=== PATIENT | male | born 1960 | race Caucasian/White ===

== ENCOUNTER 2025-03-11 14:23 | Inpatient (IN) | payer BC, SELFPAY ==
[2025-03-11] VITALS (8 sets, daily range): BP systolic 102–133; BP diastolic 54–79
--- NOTE | 2025-03-11 12:17 | ED.GENMED ---
History of Present Illness
General
Chief Complaint: Breathing Problem
Source: patient
Time Seen by Provider: 03/11/25 12:02
History of Present Illness
History of Present Illness:
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
experiencing worsening cough and shortness of breath over the last 9 weeks noting that during this time his cough is seem to have gotten worse, bringing up clear to greenish sputum, initially with had a little bit of a red tinge but this is since
resolved. He denies any fevers, chills, rigors, chest pain (notes that when he coughs it does cause discomfort throughout his entire chest and abdomen due to coughing so much). He denies any known sick contacts, recent travel or recent
antibiotics. He does report good compliance with all of his antirejection medications.
Past History
Past History
ED Past Medical History: HTN and Other (Status post kidney transplant.)
ED Past Surgical History: Appendectomy and Other (Renal biopsy)
Social History
Tobacco: Former smoker
Alcohol: None
Drug: None
Personal:
Living: with family
Family History
Family History: Other (Not contributory)
Review of Systems
Review of Systems
All Other Systems: ROS reviewed and negative except as documented in HPI and ROS
Phy Exam
Physical Exam
Physical Exam:
GENERAL: Alert , in no apparent distress
HEAD: NCAT
EYE: conjunctiva clear
NECK: Supple
ENT: o/p clr, mmm.
CARDIAC: Tachycardic rate and rhythm, no murmur
LUNGS: Restricted lung sounds throughout with scattered wheezing, pulse ox between 86 and 88% on room air. Placed on 2L NC with response to 92-94%. Speaking full sentences, no tachypnea
NEUROLOGICAL: Alert and oriented
SKIN: Warm and dry, skin intact.
MUSCULOSKELETAL: well perfused.
PSYCH: Normal and appropriate interaction.
Scores
Heart Failure Risk
Heart Failure Risk Score: Not Applicable
Heart Score for Chest Pain Patients
STEMI patient?: Not applicable
Withdrawal Assessment of Alcohol
Withdrawal Assessment Completed?: Not applicable
Course
Orders/Labs/Results
Orders:
Orders
03/11/25 11:54
CR Chest - 2 Views Urgent
Comment:
Reason For Exam: cough
03/11/25 12:15
Electrocardiogram (*1) Urgent
Reason for Study: Shortness of Breath
EKG- Treatment ONCE
Ipratropium/Albuterol Sulfate [Duoneb] 3 ml INH R NOW ONE
03/11/25 12:20
COVID-19 Antigen Urgent
Source: Nasal Swab
Complete Blood Count/With Diff Urgent
Comprehensive Metabolic Panel Urgent
NT-proBNP Urgent
Troponin I Urgent
Influenza A+B Rapid Molecular Urgent
JONO Source: Nasal Swab
Specimen Description:
03/11/25 13:43
Cefepime HCl [Maxipime] 2,000 mg IV NOW STA
Vancomycin [Vancocin] 2,000 mg 0.9% Sodium Chloride 500 ml [Nss] 500 ml IV NOW
03/11/25 13:51
Sterile Water [Sterile Water For Injection] 10 ml .ROUTE .[facility]
03/11/25 13:54
0.9% Sodium Chloride 1000 ml [Nss] 1,000 ml IV BOLUS
03/11/25 13:56
Vancomycin [Vancocin] 2,000 mg 0.9% Sodium Chloride 500 ml [Nss] 500 ml IV NOW
03/11/25 14:00
Blood Culture Q30M
JONO Source: Blood/Venous
Specimen Description:
Azithromycin [Zithromax] 500 mg PO DAILY@1400
03/11/25 14:07
Sputum Culture [Respiratory Culture/Gram Stain] Routine
JONO Source: Sputum
Specimen Description:
03/11/25 14:09
US Chest - Left Urgent
Comment:
Reason For Exam: parapneumonic effusion
03/11/25 14:11
Admit/Transfer Patient As Directed
Co-Sign Provider:
Level of Care: Inpatient admission
Assign to:: Telemetry
Physician / Group: Briana Randhawa
Diagnosis: sepsis secondary to pneumonia
Reason for Telemetry: Chest Pain syndromes
Date to Stop Telemetry: 03/13/25
Time to Stop Telemetry: 11:00
Reason for Hospitalization: sepsis secondary to pneumonia
Expected length of stay greater than two midnights?: Yes
ELOS- Estimated Length of Stay in days: 3
I certify the patient meets the requirements for IP care: Yes
03/11/25 14:12
PRN Pain Medication Management As Directed
May give lesser potent ordered pain med per pt: Yes
preference::
Protocol:: Medication orders for pain may be administered in a
manner that supports deferring to patient preference
when the pt is:
- Requesting an ordered lesser potent pain medication.
Least to most potent pain medications are defined
as: acetaminophen < NSAID < tramadol < opioids
(morphine, oxycodone, hydromorphone).
- Requesting a lesser dose of the same medication IF
ORDERED.
- Requesting a less intrusive route of administration
if both routes are prescribed by the provider (PO <
IV).
03/11/25 14:15
Code Status As Directed
Resuscitation Status: Full Code
03/11/25 14:17
Lactate Level [Lactic Acid] Urgent
03/11/25 14:30
Blood Culture Q30M
JONO Source: Blood/Venous
Specimen Description:
03/13/25 11:00
DC Protocol for Telemetry ONCE
Abnormal Lab Results
03/11/25
12:20
WBC 12.7 H 10^3/uL
(4.8-10.8)
Abs Immat Gran (auto) 0.1 H 10^3/uL
(0-0.05)
Absolute Neuts (auto) 11.2 H 10^3/uL
(1.4-6.5)
Absolute Lymphs (auto) 0.4 L 10^3/uL
(1.2-3.4)
Absolute Monos (auto) 1.1 H 10^3/uL
(0.1-0.6)
Neutrophils % 87.9 H %
(42.2-75.2)
Lymphocytes % 3.1 L %
(20.5-51.1)
Sodium 131 L mmol/L
(135-145)
BUN 41 H mg/dl
(9-20)
Creatinine 1.5 H mg/dL
(0.7-1.3)
Glucose 159 H mg/dl
(70-99)
03/11/25 12:20
03/11/25 12:20
Vital Signs
Initial and Last Documented VS:
Initial Vital Signs
Temp Pulse Resp BP Pulse Ox
99.2 F 116 20 108/70 92
03/11/25 11:50 03/11/25 11:50 03/11/25 11:50 03/11/25 11:50 03/11/25 11:50
Last Documented Vital Signs
Temp Pulse Resp BP Pulse Ox
99.2 F 112 21 102/65 92
03/11/25 11:50 03/11/25 12:24 03/11/25 12:24 03/11/25 12:23 03/11/25 12:28
MDM/Problems Addressed
Differential Diagnosis Includes:
COPD exacerbation, pneumonia, less concern for viral syndrome given the duration of time patient has had the symptoms, PE also considered given patient's tachycardia and hypoxia
MDM/Problems Addressed:
64-year-old male presenting to the ER for evaluation of continued cough, shortness of breath, sputum production and increased discomfort when coughing has been gradually worsening over the last 9 weeks. Patient has not attempted any other
medications, has not had any workup or imaging completed. He is without fever here however there is hypoxia and tachycardia. We did consider and discussed workup for PE however patient states he does not wish to receive any IV dye load so CTA of
the chest was deferred. Will obtain chest x-ray. Patient did have restricted lung sounds and wheezing likely signifying some degree of COPD exacerbation. Will treat with 2 L via nasal cannula as well as DuoNeb. Patient will likely require
antibiotics and admission for further testing/monitoring
Chronic conditions affecting care: COPD and Cancer
Acute Exacerbation and/or Progression of Chronic Illness: COPD
*Radiology
Radiology exam reviewed: preliminary read by ED provider (LLL pneumonia with small effusion)
*Pulse Oximetry
Patient hypoxic: yes
*Mash Grinder Interpretation
Rate: tachycardiac
Rhythm: sinus
*Critical Care Note
Total Time (30-74mins, 75-104mins- exclusive of procedures): Not Applicable
Patient Management
Discussion with other providers: Hospitalist
Escalation/DeEscalation of care consider admission/obs:
Patient has a significant left lower lobe pneumonia. Given his immunocompromise state combined with hypoxia we will plan for admission. Maxipime and vancomycin ordered for broad-spectrum coverage. Hospitalist team aware and accepts for continued
evaluation and treatment.
ED Attending Note
-
Portions of this chart may have been created with voice recognition software.� Occasional wrong word or��sound alike� substitutions may have occurred due to the inherent limitations of voice recognition software.
Discharge Plan
Departure
Patient Disposition: Admit
Date of Disposition: 03/11/25
Time of Disposition: 13:45
Presentation/result/management discussed w/ accepting MD/DO: Hospitalist
Discharge Problem:
Pneumonia, Acute exacerbation of chronic obstructive pulmonary disease, BC (acute kidney injury)
Interventions
Interventions:
*Risk Screen - Suicide Last Done: 03/11/25 12:28
*General Assessment Last Done: 03/11/25 12:28
*Neglect/Abuse Screening Last Done: 03/11/25 12:28
*ED- Fall Risk Assessment Last Done: 03/11/25 12:28
*ED COVID-19 Vaccine History Last Done: 03/11/25 12:28
ED- Cardiac Assessment Last Done: 03/11/25 12:28
ED- Pulmonary Assessment Last Done: 03/11/25 12:28
[2025-03-11] MEDS: DUONEB 3 ML INH (12:25)
[2025-03-11 12:35] LABS: % Basophils 0.2 % (0-2); % Immature Granulocytes 0.5 % (0-0.5); % Lymphocytes 3.1 % (20.5-51.1); % Monocytes 8.3 % (1.7-9.3); % Neutrophils 87.9 % (42.2-75.2); Absolute Immature Granulocytes 0.1 10^3/uL (0-0.05); Absolute Lymphocytes 0.4 10^3/uL (1.2-3.4); Absolute Monocytes 1.1 10^3/uL (0.1-0.6); Absolute Neutrophils 11.2 10^3/uL (1.4-6.5); Hematocrit 46.8 % (39.0-52.0); Mean Corp Hgb Conc. 34.2 g/dL (33.0-37.0); Mean Corpuscular Hgb 28.7 pg (27.0-31.0); Mean Platelet Volume 10.3 fL (7.4-10.4); Nucleated Red Blood Cells % 0 % (-); Platelet Count 271 10^3/uL (130-400); Red Blood Cell Count 5.57 10^6/uL (4.70-6.10); Red Cell Dist. Width 13.2 % (11.5-14.5); White Blood Cell Count 12.7 10^3/uL (4.8-10.8)
[2025-03-11 12:44] LABS: ALT (SGPT) 18 U/L (0-50); AST (SGOT) 19 U/L (17-59); Albumin 3.5 g/dl (3.5-5.0); Alkaline Phosphatase 65 U/L (38-126); Blood Urea Nitrogen 41 mg/dl (9-20); Calcium 9.1 mg/dl (8.4-10.2); Carbon Dioxide 22 mmol/L (22-30); Chloride 99 mmol/L (98-107); Glucose 159 mg/dl (70-99); Sodium 131 mmol/L (135-145); Total Bilirubin 1.3 mg/dl (0.2-1.3); Total Protein 6.3 g/dl (6.3-8.2); eGFR 51.99
[2025-03-11 12:53] LABS: COVID-19 Antigen Negative (Negative)
[2025-03-11 12:55] LABS: NT-proBNP 207 pg/ml; Troponin I < 0.012 ng/ml
--- NOTE | 2025-03-11 13:49 | HPS.HSE ---
Addendum entered and electronically signed by Briana Randhawa MD 03/11/25 19:34:
CHEST US
FINDINGS/IMPRESSION:
Limited targeted ultrasound evaluation of the left lower chest was performed.
Images show a small complex left pleural effusion measuring 5.1 x 2.7 x 4.2 cm.
Discussed with Pulmonary and IR, formal consult tomorrow. Thoracentesis orders placed, if large enough to tap.
Original Note:
Family Physician
-
Family Physician: LUIS ANGEL Sampson
Chief Complaint
-
cough and shortness of breath
History of Present Illness
Mr. Crescencio Beauchamp is a 64 yo man with hx COPD, renal transplant 2018 ([facility]), essential HTN presents to the ER with worsening cough and shortness of breath over the past 9 weeks.
Patient states past two months he has had a persistent cough. He had a telemed appointment and initially it was thought to be viral. He had worsening symptoms over past 2 1/2 weeks with more productive severe cough. No fevers/chills. At home he
noticed his oxygen level was low and so he came to the ER.
No nausea/vomiting. No diarrhea. Lives at home with who has not had similar illness. No rash. No LE swelling. Compliant with all medications.
Medical History
Past Medical History
Past Medical History: Reports Other (kidney transplant, COPD, former smoker, hypertension, PAD, diabetes)
Past Surgical History: Reports None
Social History
Tobacco: Former Smoker
Alcohol: Occasional
Drug: None
Family History
Family History: Not pertinent
Allergies / Home Medications
Allergies reflects when Allergies were last updated in [facility].
Home Medications with original date entered in [facility]
Allergy/Medication List:
Allergies
Allergy/AdvReac Type Severity Reaction Status Date / Time
anti-thymocyte globulin, Allergy Unknown Verified 07/11/23 10:35
rabbit
[From Thymoglobulin]
Home Medications
aspirin 81 mg chewable tablet ([place] Chewable Low Dose Aspirin) 81 mg PO HS Blood Clot Prevention/Tx 10/11/16
albuterol sulfate 90 mcg/actuation aerosol inhaler 2 puff inhalation R Q4HPRN PRN sob/wheezing 07/11/23
insulin glargine 100 unit/mL (3 mL) subcutaneous pen (Lantus Solostar U-100 Insulin) 15 unit SC BID Diabetes 07/11/23
mycophenolate mofetil 250 mg capsule 250 mg PO BID Transplant 07/11/23
nifedipine 60 mg tablet,extended release 24 hr 60 mg PO BID Blood Pressure 07/11/23
tacrolimus 1 mg capsule, immediate-release 2 mg PO BID Transplant 07/11/23
tamsulosin 0.4 mg capsule 0.4 mg PO HS Urinary Issue 07/11/23
atorvastatin 40 mg tablet (Lipitor) 40 mg PO HS 03/11/25
benzonatate 100 mg capsule 100 mg PO TIDPRN PRN cough 03/11/25
clopidogrel 75 mg tablet (Plavix) 75 mg PO QPM 03/11/25
lisinopril 20 mg tablet 20 mg PO QPM 03/11/25
tiotropium 2.5 mcg-olodaterol 2.5 mcg/actuation mist for inhalation (Stiolto Respimat) 2 puff inhalation R DAILY 03/11/25
Review of Systems
-
History Source: Patient
A 12 point ROS was completed and negative except as noted: Yes
Physical Exam
Vital Signs
Vital Signs
Temp Pulse Resp BP Pulse Ox
99.2 F 112 21 102/65 92
03/11/25 11:50 03/11/25 12:24 03/11/25 12:24 03/11/25 12:23 03/11/25 12:28
Physical Exam
General: No Apparent Distress
HEENT: PERRLA
Respiratory: Clear and Decreased Breath Sounds (left lower lobe ); No Wheezes
Cardiac: S1/S2 and Regular Rhythm
Musculoskeletal: No Clubbing, No Cyanosis and No Edema
Skin: Warm and Dry; No Rash
Neuro: AO x 3
Psych: Calm
Laboratory Results
-
03/11/25 12:20
03/11/25 12:20
Laboratory Results
Total Bilirubin 1.3 mg/dl (0.2-1.3) 03/11/25 12:20
AST 19 U/L (17-59) 03/11/25 12:20
ALT 18 U/L (0-50) 03/11/25 12:20
Alkaline Phosphatase 65 U/L (38-126) 03/11/25 12:20
Troponin I < 0.012 ng/ml 03/11/25 12:20
Data Reviewed
-
Diagnostic Radiology: Report Reviewed by me
Lab Data: Labs Reviewed by me
Impression/Plan
-
Mr. Crescencio Beauchamp is a 64 yo man with hx COPD, renal transplant 2018 ([facility]) on immunosuppressents, essential HTN presents to the ER with worsening cough and shortness of breath over the past 9 weeks found to have left basilar pneumonia with
small likely parapneumonic effusion.
Triage VS: T 99.2, P 116, RR 20, BP 108/70, SpO2 92%
LABS: WBC 12.7, Hg 16.0, PLT 271, Na 131, K+ 5.0, Cl 99, CO2 22, BUN 41, Cr 15, Glucose 159, liver enzymes WNL, Trop < 0.012
Covid negative
Influenza negative
EKG: sinus tach @ 108; QTc 428
MAR: Vanc/Cefepime/Duonebs
CXR:
IMPRESSION:
There is a left basilar infiltrate favored to represent pneumonia. Additionally there is a likely small left pleural effusion, likely parapneumonic effusion. Recommend follow-up to ensure resolution.
Community Acquired pneumonia
Sepsis 2/2 Above
Small left parapneumonic effusion
Hypoxic Respiratory Insufficiency
-admit to medicine
-continue Vanc/Cefepime; add Azithromycin for atypical coverage
-Mucinex, acapella
-F/U MRSA swab, Legionalla, Strep Pneumo testing
-F/U blood cultures, lactate
-F/U sputum culture
-will obtain left chest US now to evaluated effusion; patient will require repeat imaging in 48 hours to monitor
Hx Renal Transplant
-PULMONOLOGIST INTENSIVIST Cellcept, Tacrolimus
-F/U Tacrolimus level
Mild BC in setting of sepsis
-IVF as above
-F/U urine studies
-hold PULMONOLOGIST INTENSIVIST Lisinopril
-monitor renal function
-low threshold for Nephrology consult if renal function not improved tomorrow
Essential HTN
-hold PULMONOLOGIST INTENSIVIST Lisinopril
-PULMONOLOGIST INTENSIVIST Nifedipine with hold parameters
IDDM
-patient takes Lantus 15 units BID here
-ordered for 8 units BID, adjust as needed
-ISS low
-Diabetic Diet
Hx COPD
-s/p lung volume reduction surgery
-no active wheezing on exam
-continue home inhalers and standing duonebs
Peripheral Arterial Disease
s/p stents RLE 1-2 years ago
-PULMONOLOGIST INTENSIVIST aspirin/Plavix
HLD - PULMONOLOGIST INTENSIVIST Statin
DVT PPx SCD
FULL CODE
76 minutes spent on patient care
[2025-03-11] MEDS: MAXIPIME 2000 MG IV (13:53)
[2025-03-11] MEDS: NSS 1000 IV ×2 (14:15→16:29)
[2025-03-11] MEDS: VANCOCIN 540 MG IV (14:16)
[2025-03-11 14:38] LABS: Lactic Acid 0.9 mmol/L (0.7-2.0)
--- NOTE | 2025-03-11 15:22 | PHA.VAN.IN ---
Assessment
- Assessment
Renal Function: Unknown baseline
Concomitant Antimicrobials: cefepime, azithromycin
Plan
- Plan
Initial / Loading Dose: 2000mg - 03/11 14:16
Maintenance Regimen: dosing by level
Monitoring: random 03/12 0600
MRSA Screen: Ordered per protocol
Pharmacokinetics Vancomycin I
- -
Patient Age: 64
Patient Sex: Male
Vancomycin Day #: 1
Indication: Pulmonary/Respiratory
Requesting Provider: Dr. Randhawa
Pertinent Antimicrobial Allergies:
no pertinent antibiotic allergies
Height / Weight:
Actual Weight 77 kg
Pertinent Past Medical History: Renal Transplant (2018), DM, PAD
- Vital Signs / Lab Results
Temp Pulse Resp BP Pulse Ox
100.6 F H 113 16 133/79 90
03/11/25 15:19 03/11/25 15:19 03/11/25 15:19 03/11/25 15:19 03/11/25 15:19
Lab Results - Hematology
03/11/25
12:20
WBC 12.7 H
Lab Results - Chemistry
03/11/25
12:20
BUN 41 H
Creatinine 1.5 H
Albumin 3.5
03/11/25
14:17
Lactic Acid 0.9
Microbiology Results
03/11/25 12:20 Influenza Types A & B (YOEL) - Final
Nasal Swab Negative for Influenza A & B, NAAT
Negative results must be combined with clinical observations
and patient history.
Nucleic Acid Amplification test (NAAT)performed on the
[employer] platform.
[2025-03-11 15:32] LABS: Glucose - Point of Care 135 mg/dl (70-99)
[2025-03-11] MEDS: TYLENOL 650 MG PO ×2 (15:43→20:41)
[2025-03-11] MEDS: ZITHROMAX 500 MG PO (15:43)
[2025-03-11] MEDS: TESSALON PERLES 100 MG PO (15:48)
--- NOTE | 2025-03-11 16:22 | PTCARENOTE ---
Pt arrived to the unit around 1545 from ED. He ambulated from stretcher to bed. On 2L NC. Patient oriented to room and staff. All needs met at this time. Plan of care ongoing.
[2025-03-11 16:34] LABS: Glucose - Point of Care 144 mg/dl (70-99)
[2025-03-11] MEDS: NOVOLOG FLEXPEN-LOW RESISTANCE SC (16:43)
[2025-03-11] MEDS: VENTOLIN NEBULES INH (16:49)
[2025-03-11] MEDS: PLAVIX 75 MG PO (18:02)
[2025-03-11 18:34] LABS: Urine Sodium 17 mmol/L (30-90)
[2025-03-11] MEDS: VENTOLIN NEBULES 2.5 MG INH (19:51)
[2025-03-11 20:22] LABS: Glucose - Point of Care 243 mg/dl (70-99)
[2025-03-11] MEDS: LANTUS 0.08 UNITS SC (20:32)
[2025-03-11] MEDS: MUCINEX 600 MG PO (20:39)
[2025-03-11] MEDS: PROCARDIA XL (EXTENDED RELEASE) PO (20:39)
[2025-03-11] MEDS: PROGRAF 2 MG PO (20:40)
[2025-03-11] MEDS: FLOMAX 0.4 MG PO (22:29)
[2025-03-11] MEDS: CELLCEPT 250 MG PO (22:29)
[2025-03-11] MEDS: LIPITOR 40 MG PO (22:29)
[2025-03-11] MEDS: LOW STRENGTH ASPIRIN 81 MG PO (22:30)
[2025-03-12] VITALS (7 sets, daily range): BP systolic 99–145; BP diastolic 53–78
[2025-03-12] MEDS: MAXIPIME 2000 MG IV ×2 (03:13→13:08)
[2025-03-12] MEDS: STERILE WATER FOR INJECTION 10 ML IV ×2 (03:14→13:08)
[2025-03-12 06:15] LABS: Glucose - Point of Care 138 mg/dl (70-99)
[2025-03-12] MEDS: LANTUS 0.08 UNITS SC ×2 (06:15→20:29)
[2025-03-12 06:44] LABS: % Basophils 0.3 % (0-2); % Eosinophils 1.4 % (0-6); % Immature Granulocytes 0.6 % (0-0.5); % Monocytes 11.9 % (1.7-9.3); % Neutrophils 79.8 % (42.2-75.2); Absolute Eosinophils 0.1 10^3/uL (0-0.7); Absolute Immature Granulocytes 0.1 10^3/uL (0-0.05); Absolute Lymphocytes 0.5 10^3/uL (1.2-3.4); Absolute Neutrophils 6.9 10^3/uL (1.4-6.5); Hematocrit 45.2 % (39.0-52.0); Hemoglobin 15.2 g/dL (13.0-18.0); Mean Corp Hgb Conc. 33.6 g/dL (33.0-37.0); Mean Corpuscular Hgb 28.6 pg (27.0-31.0); Mean Platelet Volume 10.4 fL (7.4-10.4); Nucleated Red Blood Cells % 0 % (-); Platelet Count 259 10^3/uL (130-400); Red Blood Cell Count 5.32 10^6/uL (4.70-6.10); Red Cell Dist. Width 13.3 % (11.5-14.5); White Blood Cell Count 8.7 10^3/uL (4.8-10.8)
[2025-03-12 07:21] LABS: Blood Urea Nitrogen 36 mg/dl (9-20); Calcium 8.9 mg/dl (8.4-10.2); Carbon Dioxide 23 mmol/L (22-30); Chloride 107 mmol/L (98-107); Estimated Creatinine Clearance 52 ml/min; Glucose 158 mg/dl (70-99); LDH 205 U/L (120-246); Potassium 4.7 mmol/L (3.5-5.1); Sodium 138 mmol/L (135-145); Total Protein 5.5 g/dl (6.3-8.2); eGFR > 60.00
[2025-03-12] MEDS: SPIRIVA RESPIMAT 2.5 MCG 2 PUFF INH (07:51)
[2025-03-12] MEDS: STRIVERDI RESPIMAT 2 PUFF INH (07:51)
[2025-03-12 08:07] LABS: Glucose - Point of Care 108 mg/dl (70-99)
[2025-03-12] MEDS: NOVOLOG FLEXPEN-LOW RESISTANCE SC (08:07)
[2025-03-12] MEDS: CELLCEPT 250 MG PO ×2 (08:08→20:25)
[2025-03-12] MEDS: MUCINEX 600 MG PO (08:08)
[2025-03-12] MEDS: PROGRAF 2 MG PO ×2 (08:08→20:27)
[2025-03-12] MEDS: PROCARDIA XL (EXTENDED RELEASE) 60 MG PO ×2 (08:08→20:26)
--- NOTE | 2025-03-12 08:24 | PHA.VAN.FU ---
Vancomycin Assessment / Plan
- Assessment
Renal Function: SCR Decreasing
WBC's are: Trending Down
In the past 24 hrs, patient has been: Afebrile
Concomitant Antimicrobials: cefepime, azithromycin
- Dosing Plan
Dosing by Level: Re-dose today (Vanc 1250mg x1)
No level for today but based on SCR trend, appropriate to re-dose today
- Monitoring Plan
Random Level: 03/13 0600
- Follow Up
Pharmacy will continue to follow.
Vancomycin Follow UP
- -
Patient Age: 64
Patient Sex: Male
Vancomycin Day #: 2
Indication: Pulmonary/Respiratory
Requesting Provider: Dr. Randhawa
Pertinent Antimicrobial Allergies:
no pertinent antibiotic allergies
Height / Weight:
Height 5 ft 6 in
Actual Weight 77 kg
Pertinent Past Medical History: Renal Transplant (2018), DM, PAD
- Vital Signs / Lab Results
Temp Pulse Resp BP Pulse Ox
98.5 F 100 16 145/73 91
03/12/25 07:19 03/12/25 08:08 03/12/25 07:55 03/12/25 08:08 03/12/25 07:55
Lab Results - Hematology
03/11/25 03/12/25
12:20 06:02
WBC 12.7 H 8.7
Lab Results - Chemistry
03/11/25 03/12/25
12:20 06:02
BUN 41 H 36 H
Creatinine 1.5 H 1.3
Estimated Creat Clear 52
Albumin 3.5
03/11/25
14:17
Lactic Acid 0.9
Microbiology Results
03/11/25 18:07 Legionella Urinary Antigen - Final
Urine Negative for Legionella pneumophila Serogroup 1 antigen.
A negative result does not rule out the possiblity of
Legionella infection due to other serogroups or species of
Legionella. Clinical correlation is recommended.
Streptococcus pneumoniae Antigen (M - Final
Negative for Streptococcus pneumoniae antigen.
A negative result does not exclude infection with
Streptococcus pneumoniae. Clinical correlation is
recommended.
03/11/25 16:38 Nasal Screen MRSA (PCR) - Final
Nose MRSA not detected - performed by PCR methodology.
03/11/25 14:48 Gram Stain - Preliminary
Sputum
03/11/25 12:20 Influenza Types A & B (YOEL) - Final
Nasal Swab Negative for Influenza A & B, NAAT
Negative results must be combined with clinical observations
and patient history.
Nucleic Acid Amplification test (NAAT)performed on the
[employer] platform.
--- NOTE | 2025-03-12 08:50 | CON.PUL ---
Consultation
Consultation Request
Date/Time Consultation Requested: 03/11/20251926
Date/Time Consultation Performed: 03/12/2025843
Requesting Provider: Dr. Randhawa
Performing Provider: Dr. Mcmahan
Reason for Consultation: PNA/COPD
Medical History
-
Chief Complaint: Persistent cough with SOB
History of Present Illness:
64-year-old male former tobacco smoker with a past medical history of COPD, kidney transplant, chronic immunosuppressive use, hypertension, PAD, and DM type II who presents with cough + SOB. He said he has had a cough for about 11 weeks and it
worsened over the last 3 weeks. He follows with pulmonology at [place], Dr. Hart, and he was told that he has a viral illness. He does not normally have a cough. Also denied any fevers prior to arrival. He is not on home oxygen. Also denies
nausea/vomiting/diarrhea/abdominal pain. He is on Stiolto for COPD. In the ER he was afebrile to 99.2 �F, pulse rate 116, respiratory rate 20, BP 108/70 and saturating 92% on room air. Labs showed leukocytosis to 12.7, sodium 131, creatinine 1.5,
proBNP 207, troponin negative at <0.012, and COVID-19 antigen negative. Flu swab is negative, blood cultures were collected and CXR showed a left basilar infiltrate likely due to pneumonia. He was given 1 L NS 0.9% in the ER, DuoNebs +
cefepime/vancomycin, and admitted to telemetry under the hospitalist. Pulmonary service is now consulted for additional management/recommendations.
When I saw the patient today, he was resting in bed on 3 L/min nasal cannula, saying he still has a cough with yellow mucus, although he is breathing well. His cough sounds wet but he is not bringing up a large amount of phlegm. He currently
denies chest pain, RAMOS, nausea, chills. He was febrile yesterday to 100.6 �F.
PMHx: COPD/emphysema, former tobacco smoker, kidney transplant, hypertension, PAD, diabetes mellitus type 2
PSHx: Kidney transplant, appendectomy, LUE AV fistula
Past Medical History
Past Medical History: Other (Above as per HPI)
Past Surgical History: Other (Above as per HPI)
Social History
Tobacco: Former Smoker
Alcohol: Occasional
Drug: None
Employment: Employed (Machine shop)
Family History
Family History: Reviewed & Not Pertinent
Allergies / Home Medications
Allergies
Allergy/AdvReac Type Severity Reaction Status Date / Time
anti-thymocyte globulin, Allergy Unknown Verified 07/11/23 10:35
rabbit
[From Thymoglobulin]
Home Medications
�Medication �Instructions �Recorded �Confirmed �Last Taken �Type
aspirin 81 mg chewable tablet 81 mg PO HS Blood Clot 10/11/16 03/11/25 03/10/25 History
([place] Chewable Low Dose Aspirin) Prevention/Tx
albuterol sulfate 90 mcg/actuation 2 puff inhalation R Q4HPRN PRN 07/11/23 03/11/25 Unknown History
aerosol inhaler sob/wheezing
insulin glargine 100 unit/mL (3 15 unit SC BID Diabetes 07/11/23 03/11/25 03/11/25 History
mL) subcutaneous pen (Lantus
Solostar U-100 Insulin)
mycophenolate mofetil 250 mg 250 mg PO BID Transplant 07/11/23 03/11/25 03/11/25 History
capsule
nifedipine 60 mg tablet,extended 60 mg PO BID Blood Pressure 07/11/23 03/11/25 03/11/25 History
release 24 hr
tacrolimus 1 mg capsule, 2 mg PO BID Transplant 07/11/23 03/11/25 03/11/25 History
immediate-release
tamsulosin 0.4 mg capsule 0.4 mg PO HS Urinary Issue 07/11/23 03/11/25 03/10/25 History
atorvastatin 40 mg tablet (Lipitor) 40 mg PO HS 03/11/25 03/11/25 03/09/25 History
benzonatate 100 mg capsule 100 mg PO TIDPRN PRN cough 03/11/25 03/11/25 Unknown History
clopidogrel 75 mg tablet (Plavix) 75 mg PO QPM 03/11/25 03/11/25 03/10/25 History
lisinopril 20 mg tablet 20 mg PO QPM 03/11/25 03/11/25 03/10/25 History
tiotropium 2.5 mcg-olodaterol 2.5 2 puff inhalation R DAILY 03/11/25 03/11/25 03/11/25 History
mcg/actuation mist for inhalation
(Stiolto Respimat)
Review of Systems
-
History Source: Patient
All other systems: Negative unless noted
Vitals / Labs / Diagnostic Testing
Vital Signs
Temp Pulse Resp BP Pulse Ox
98.5 F 100 16 145/73 91
03/12/25 07:19 03/12/25 08:08 03/12/25 07:55 03/12/25 08:08 03/12/25 07:55
Lab Data
03/12/25 06:02
03/12/25 06:02
Microbiology
03/11/25 18:07 Urine Legionella Urinary Antigen - Final
Negative for Legionella pneumophila Serogroup 1 antigen.
A negative result does not rule out the possiblity of
Legionella infection due to other serogroups or species of
Legionella. Clinical correlation is recommended.
03/11/25 18:07 Urine Streptococcus pneumoniae Antigen (M - Final
Negative for Streptococcus pneumoniae antigen.
A negative result does not exclude infection with
Streptococcus pneumoniae. Clinical correlation is
recommended.
03/11/25 16:38 Nose Nasal Screen MRSA (PCR) - Final
MRSA not detected - performed by PCR methodology.
03/11/25 14:48 Sputum Gram Stain - Preliminary
03/11/25 12:20 Nasal Swab Influenza Types A & B ([facility]) - Final
Negative for Influenza A & B, NAAT
Negative results must be combined with clinical observations
and patient history.
Nucleic Acid Amplification test (NAAT)performed on the
[employer] platform.
Diagnostic Testing:
Physical Exam
-
HEENT: Normocephalic and Anicteric
Cardiovascular: S1/S2 and Peripheral Edema (negative)
Respiratory: Wheeze (negative), Rales (Left base), Rhonchi (negative) and Non-Labored Respirations
GI: Soft, Non Distended, Non Tender and Normal Bowel Sounds
Neurology: AO x 3 and Tremors (negative)
Skin: Warm and Dry
General: Respiratory Distress (negative), Comfortable, Fever (negative) and Chills (negative)
Assessment
-
Assessment: 64-year-old male former tobacco smoker with a past medical history of COPD, kidney transplant, chronic immunosuppressive use, hypertension, PAD, and DM type II who presents with cough + SOB. He said he has had a cough for about 11
weeks and it worsened over the last 3 weeks. He follows with pulmonology at [place], Dr. Hart, and he was told that he has a viral illness. He does not normally have a cough. Also denied any fevers prior to arrival. He is not on home oxygen.
Also denies nausea/vomiting/diarrhea/abdominal pain. He is on Stiolto for COPD. In the ER he was afebrile to 99.2 �F, pulse rate 116, respiratory rate 20, BP 108/70 and saturating 92% on room air. Labs showed leukocytosis to 12.7, sodium 131,
creatinine 1.5, proBNP 207, troponin negative at <0.012, and COVID-19 antigen negative. Flu swab is negative, blood cultures were collected and CXR showed a left basilar infiltrate likely due to pneumonia. He was given 1 L NS 0.9% in the ER,
DuoNebs + cefepime/vancomycin, and admitted to telemetry under the hospitalist. Pulmonary service is now consulted for additional management/recommendations.
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
Impression:
#CAP involving left lower lobe likely due to Streptococcus pneumonia (sputum culture positive)
#Acute COPD exacerbation due to above
#Acute respiratory failure with hypoxia due to above
#Left-sided complex parapneumonic effusion
#Chronic cough
#Renal transplant (2018 � [facility]) on chronic immunosuppressives
#DM type II complicated by hyperglycemia
#Former tobacco smoker
Plan:
- Patient's had a cough for about 2.5 months, however it has been worsening over the last several weeks. CXR on admission here shows a left basilar infiltrate/opacity and sputum culture is positive for Streptococcus pneumoniae
- Prior CXR from 07/11/2023 showed LLL pleural tenting, although prior CT chest from January 30 showed normal bases
- He has centrilobular emphysema/COPD and is on stiolto at home --> continue Striverdi + Spiriva while hospitalized along with nebulized albuterol QID
- If he is too SOB to take the SMI then would change everything to nebulized form
- prn nebulized albuterol - not currently bronchospastic
- Maintain SpO2 88-95% with supplemental O2 and wean down as tolerated
- Encourage pt to get up OOB as tolerated
- Incentive spirometer encouraged q1hr while awake
- Mucolytics - raise mucinex to 1200mg q12hr
- prn anti-tussants
- Start prednisone with 40mg 5 days (he says he takes prednisone at home, 1.5mg daily for his kidney transplant)
- Continue with broad spectrum ABx - currently on cefepime, IV vancomycin and azithromycin
- Legionella + strep pneumonia urine antigens negative, although respiratory culture positive for Streptococcus pneumoniae; follow-up blood cultures ( � shows NGTD); MRSA swab negative, can DC IV vancomycin
- Trend WBC and monitor for fevers
- Continue IVF with NS @ 80cc/hr
- Given he is immunosuppressed, would plan for 7-10 days total of Abx assuming he continues to clinically improve and remains afebrile for 48 hours prior to stopping antibiotics
- Chest ultrasound from 03/11/2025 showed a small complex left-sided pleural effusion measuring 5.1 x 2.7 x 4.2 cm. Effusion is too small to be tapped. If he starts to develop recurrent fevers then would re-check chest ultrasound to see if it is
enlarging, and would favor at least diagnostic thoracentesis in that scenario
- Continue immunosuppressive's with mycophenolate + tacrolimus
- Check tacrolimus level tomorrow a.m. (to be checked immediately prior to AM dose)
- Keep MAP>65
- Replete electrolytes with K>4, Mg>2
- Trend H/H and transfuse if needed to keep Hb>7g/dL; keep plt>20k, unless there is concern for bleeding then keep plt>50k
- Maintain euglycemia, especially while on steroids, with goal BG >100 and <180
- DVT ppx: start LMWH
Pulmonary service will continue to follow along. He will follow-up with his pulmonary doctor, Dr. Hart, following discharge. If he wishes to follow with a public works inspector closer then he is welcome to see us at the [facility] office.
Data:
CXR 03/11/2025: There is a left basilar infiltrate favored to represent pneumonia. Additionally there is a likely small left pleural effusion, likely parapneumonic effusion. Recommend follow-up to ensure resolution.
Total time spent today was 58 minutes for this encounter. Time includes reviewing laboratory test/imaging results, reviewing pertinent medical records, obtaining and reviewing medical history, performing an appropriate exam, ordering medications,
tests and procedures. Time also includes documentation of this encounter, coordinating patient care and communicating with other healthcare professionals. Total time does not include separately billed tests performed on this date of service.
[2025-03-12 08:54] LABS: Glycohemoglobin (HgbA1c) 6.7 % (4.0-5.6)
[2025-03-12] MEDS: TESSALON PERLES 100 MG PO (08:59)
[2025-03-12] MEDS: NSS 1000 IV ×2 (09:36→23:51)
[2025-03-12] MEDS: VENTOLIN NEBULES INH (11:30)
[2025-03-12] MEDS: VENTOLIN NEBULES 2.5 MG INH ×3 (11:32→19:54)
--- NOTE | 2025-03-12 12:10 | W.PN.HOSP.TC ---
Today's Communication/Plan
-
Pulm and ID consults
continue current abx
follow CBC, BMP
Assessment / Plan
Assessment / Plan
Community Acquired pneumonia
Sepsis 2/2 Above
Small left parapneumonic effusion
Hypoxic Respiratory Insufficiency
-admit to medicine
-continue Vanc/Cefepime; add Azithromycin for atypical coverage
-Mucinex, acapella
-F/U MRSA swab, Legionalla, Strep Pneumo testing
-F/U blood cultures, lactate
-F/U sputum culture
-left chest US evaluated effusion; patient will require repeat imaging in 48 hours to monitor. Contacted by radiology that effusion was too small to drain and they requested to cancel order- done
Hx Renal Transplant
-ORE TESTER Cellcept, Tacrolimus
-F/U Tacrolimus level
Mild BC in setting of sepsis
-IVF as above
-F/U urine studies
-hold ORE TESTER Lisinopril
-monitor renal function. Creat 1.5-->1.3
-low threshold for Nephrology consult if renal function not improved tomorrow. Discussed with Dr. Lee, he is aware pt admitted and will be available if needed
Essential HTN
-hold ORE TESTER Lisinopril
-ORE TESTER Nifedipine with hold parameters
IDDM
-patient takes Lantus 15 units BID here
-ordered for 8 units BID, adjust as needed
-ISS low
-Diabetic Diet
glu 108-243
Hx COPD
-s/p lung volume reduction surgery
-no active wheezing on exam
-continue home inhalers and standing duonebs
Peripheral Arterial Disease
s/p stents RLE 1-2 years ago
-ORE TESTER aspirin/Plavix
HLD - ORE TESTER Statin
Consult Pulm and ID
DVT PPx SCD
FULL CODE
Anticipated Discharge: > 48 hours
Subjective/Interval History
-
Date of Service: March 12, 2025
Still with cough
Objective Data
-
Labs:
Laboratory Results
03/12/25
06:02
WBC 8.7
Hgb 15.2
Hct 45.2
Plt Count 259
Sodium 138
Potassium 4.7
Chloride 107
Carbon Dioxide 23
BUN 36 H
Creatinine 1.3
Glucose 158 H
Calcium 8.9
Vital Signs:
Vital Signs
Temp Pulse Resp BP Pulse Ox
99.0 F 90 15 99/53 97
03/12/25 10:56 03/12/25 11:35 03/12/25 11:35 03/12/25 10:56 03/12/25 11:35
I&O
03/11/25 03/12/25 03/13/25
06:59 06:59 06:59
Intake Total 480 / 480
Output Total 1125 / 1125
Balance -645 / -645
Review of Systems
-
History Source: Patient and Coordinated Provider
Constitutional: Reports Fever (100.6 on 03/11 @15:19)
Respiratory: Reports Cough
Cardiac: Reports No Symptoms; Denies Chest Pain
Genitourinary: Reports No Symptoms
Musculoskeletal: Reports No Symptoms
Neuro: Reports No Symptoms
Physical Exam
-
General: Well Developed, Well Nourished and No Apparent Distress
HEENT: Normocephalic, Atraumatic and Moist Mucous Membranes
Respiratory: Rhonchi (rhonchus cough)
Cardiac: Regular Rhythm and S1/S2
GI: Soft, Nontender and Nondistended
Musculoskeletal: No Clubbing, No Cyanosis and No Edema
Skin: Warm and Dry
Neuro: Awake, Alert and Oriented
[2025-03-12 12:54] LABS: Glucose - Point of Care 286 mg/dl (70-99)
[2025-03-12] MEDS: ZITHROMAX 500 MG PO (13:04)
[2025-03-12] MEDS: VANCOCIN 275 MG IV (14:15)
[2025-03-12] MEDS: NOVOLOG FLEXPEN-LOW RESISTANCE 3 UNITS SC ×2 (14:15→18:24)
--- NOTE | 2025-03-12 15:41 | CM ---
CM met with Crescencio to complete IA; admitted with pleural effusion.
Crescencio lives with his , Yajaira, in a [facility] home with 4 entry steps. Bedroom upstairs, bathroom available on both floors.
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
Plan: Discharge to home; CM to follow to coordinate all discharge planning needs.
PCP: Dr. Oneil
Pharm: [facility] in [place]
[2025-03-12 16:47] LABS: Glucose - Point of Care 256 mg/dl (70-99)
--- NOTE | 2025-03-12 17:36 | CON.ID ---
Consultation
-
Date/Time Consultation Requested: 03/12/2025 1221
Date/Time Consultation Performed: 03/12/2025 1702
Requesting Provider: Dr. Matias
Performing Provider: Dr. Tamayo
Reason for Consultation: Pneumonia; immunocompromised
Chief Complaint / Past History
History of Present Illness
Crescencio Beauchamp is a 64-year-old man with a significant past medical history of renal transplant (2018) being evaluated at the request of Dr. Matias regarding pneumonia. History is obtained from chart review, along with patient interview.
The patient reports he was in his usual state of health until approximately 9 weeks ago when he began to have a cough. At that time, he thought it was a simple upper respiratory tract infection. In late January he called his transplant doctor
regarding symptomatology and they thought it may be viral related. When symptoms did not improve, he reached out to his doctors and he had a telemedicine visit and was prescribed Tessalon Perles, but with little effect. Over the past 2 weeks he
has noted his cough to be worse, and he he developed shortness of breath and finally presented to the emergency room for further evaluation.
Here, he was found to have a leukocytosis. Sputum culture is now revealing the presence of strep pneumoniae, and Infectious Diseases is asked to comment on further antimicrobial therapy.
At present, he notes ongoing sputum production which is white to green. He notes rib pain secondary to his coughing. He denies any fevers or chills. He does admit to shortness of breath. He denies any discomfort over his transplant.
Past History
Additional Past Medical History:
COPD
Hx renal failure
HTN
Additional Past Surgical History:
Renal transplant (2018; [facility])
Appendectomy
Lung reduction
Allergy History:
anti-thymocyte globulin, rabbit [From Thymoglobulin] Allergy (Verified 07/11/23 10:35)
Unknown
Medications Reviewed: Yes
Current Antibiotics:
Cefepime
Azithromycin
Social History
Tobacco: Former Smoker
Alcohol: None
Drug: None
Personal:
Living: With Family
Employment: Employed
Family History
Family History: Not Pertinent
Review of Systems
Vital Signs
Temp Pulse Resp BP Pulse Ox
99.0 F 98 17 108/78 97
03/12/25 15:27 03/12/25 15:27 03/12/25 15:27 03/12/25 15:27 03/12/25 15:27
Physical Exam
Physical Exam
Constitutional: No Acute Distress, Comfortable and Non-toxic
Head: Normocephalic
Eyes: Pupils Equal, Pupils Round, No Conjunctival Hemorrhage and Sclera Anicteric
Oral: No Thrush and No Ulcers
Cardiovascular: Regular Rate and S1/S2; Negative S3/S4
Pulmonary: Other (decreased BS's throughout); Negative Wheezes, Rales or Rhonchi
Gastrointestinal: Soft, Non Tender, Non Distended, Normal Bowel Sounds, No Rebound and No Guarding
Genito-Urinary: Other (No tenderness over transplant.)
Extremities: Negative Edema, Cyanosis or Erythema
Skin: Warm and Dry; Negative Rash or Jaundice
Neurological: Awake, Alert and Oriented
Psychological: Calm
.
Lab / Diagnostic Study Results
03/12/25 06:02
03/12/25 06:02
Abs Immat Gran (auto) 0.1 10^3/uL (0-0.05) H 03/12/25 06:02
Absolute Neuts (auto) 6.9 10^3/uL (1.4-6.5) H 03/12/25 06:02
Absolute Lymphs (auto) 0.5 10^3/uL (1.2-3.4) L 03/12/25 06:02
Absolute Monos (auto) 1.0 10^3/uL (0.1-0.6) H 03/12/25 06:02
Absolute Basos (auto) 0.0 10^3/uL (0-0.2) 03/12/25 06:02
Immature Gran % 0.6 % (0-0.5) H 03/12/25 06:02
Neutrophils % 79.8 % (42.2-75.2) H 03/12/25 06:02
Lymphocytes % 6.0 % (20.5-51.1) L 03/12/25 06:02
Monocytes % 11.9 % (1.7-9.3) H 03/12/25 06:02
Eosinophils % 1.4 % (0-6) 03/12/25 06:02
Basophils % 0.3 % (0-2) 03/12/25 06:02
Lactic Acid 0.9 mmol/L (0.7-2.0) 03/11/25 14:17
Microbiology Results
Micro:
03/11/25 14:17 Blood Culture - Preliminary
Blood/Venous No Growth in 24 hours- Final report to follow
03/11/25 14:17 Blood Culture - Preliminary
Blood/Venous No Growth in 24 hours- Final report to follow
03/11/25 14:48 Respiratory Culture - Preliminary
Sputum Streptococcus pneumoniae
Gram Stain - Preliminary
03/11/25 18:07 Legionella Urinary Antigen - Final
Urine Negative for Legionella pneumophila Serogroup 1 antigen.
A negative result does not rule out the possiblity of
Legionella infection due to other serogroups or species of
Legionella. Clinical correlation is recommended.
Streptococcus pneumoniae Antigen (M - Final
Negative for Streptococcus pneumoniae antigen.
A negative result does not exclude infection with
Streptococcus pneumoniae. Clinical correlation is
recommended.
03/11/25 16:38 Nasal Screen MRSA (PCR) - Final
Nose MRSA not detected - performed by PCR methodology.
03/11/25 12:20 Influenza Types A & B ([facility]OEL) - Final
Nasal Swab Negative for Influenza A & B, NAAT
Negative results must be combined with clinical observations
and patient history.
Nucleic Acid Amplification test (NAAT)performed on the
[employer] NOW platform.
Imaging:
03/11/2025 CXR (2 view): Left basilar infiltrate noted. Suspected small left effusion. No pneumothorax. Please see full dictation for additional detail.
Assessment / Plan
LLL PNA 2* Strep. pneumoniae
Leukocytosis
Cough
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
COPD
Hx renal failure
HTN
Recommendations:
Transition cefepime to ceftriaxone 2 g IV every 24 hours.
Continue with Azithromycin for the present (for anti-inflammatory properties given recovery of strep pneumo)
Monitor white count and temperature curve.
Monitor sputum production.
Await final susceptibility data.
Continue with supportive measures.
Further recommendations as additional data is returned.
[2025-03-12] MEDS: NSS IV (18:20)
[2025-03-12] MEDS: DELTASONE 40 MG PO (18:22)
[2025-03-12] MEDS: PLAVIX 75 MG PO (18:24)
[2025-03-12] MEDS: LOVENOX 40 MG SC (18:25)
[2025-03-12] MEDS: ROCEPHIN 2000 MG IV (18:26)
[2025-03-12] MEDS: STERILE WATER FOR INJECTION 20 ML IV (18:26)
[2025-03-12 20:19] LABS: Glucose - Point of Care 106 mg/dl (70-99)
[2025-03-12] MEDS: MUCINEX 1200 MG PO (20:25)
[2025-03-12] MEDS: FLOMAX 0.4 MG PO (22:02)
[2025-03-12] MEDS: LIPITOR 40 MG PO (22:03)
[2025-03-12] MEDS: LOW STRENGTH ASPIRIN 81 MG PO (22:03)
[2025-03-13 03:00] VITALS: BP 108/61
[2025-03-13 06:00] VITALS: BMI 27.7
[2025-03-13 06:04] LABS: Glucose - Point of Care 218 mg/dl (70-99)
[2025-03-13] MEDS: LANTUS 0.08 UNITS SC ×2 (06:15→20:25)
[2025-03-13] MEDS: STRIVERDI RESPIMAT 2 PUFF INH (07:36)
[2025-03-13] MEDS: SPIRIVA RESPIMAT 2.5 MCG 2 PUFF INH (07:36)
[2025-03-13] MEDS: VENTOLIN NEBULES 2.5 MG INH ×4 (07:37→19:44)
[2025-03-13 08:00] VITALS: BP 117/69
[2025-03-13 08:18] LABS: % Basophils 0.2 % (0-2); % Immature Granulocytes 0.8 % (0-0.5); % Lymphocytes 3.2 % (20.5-51.1); % Monocytes 3.2 % (1.7-9.3); % Neutrophils 92.6 % (42.2-75.2); Absolute Immature Granulocytes 0.1 10^3/uL (0-0.05); Absolute Lymphocytes 0.3 10^3/uL (1.2-3.4); Absolute Monocytes 0.3 10^3/uL (0.1-0.6); Absolute Neutrophils 9.7 10^3/uL (1.4-6.5); Hematocrit 45.5 % (39.0-52.0); Hemoglobin 15.3 g/dL (13.0-18.0); Mean Corp Hgb Conc. 33.6 g/dL (33.0-37.0); Mean Corpuscular Hgb 28.3 pg (27.0-31.0); Mean Corpuscular Volume 84.3 fL (80.0-94.0); Mean Platelet Volume 10.1 fL (7.4-10.4); Nucleated Red Blood Cells % 0 % (-); Platelet Count 313 10^3/uL (130-400); Red Cell Dist. Width 13.4 % (11.5-14.5); White Blood Cell Count 10.4 10^3/uL (4.8-10.8)
[2025-03-13] MEDS: NOVOLOG FLEXPEN-LOW RESISTANCE 2 UNITS SC (08:28)
[2025-03-13] MEDS: PROCARDIA XL (EXTENDED RELEASE) PO (08:30)
[2025-03-13] MEDS: PROGRAF 2 MG PO ×2 (08:31→20:24)
[2025-03-13] MEDS: CELLCEPT 250 MG PO ×2 (08:31→20:25)
[2025-03-13] MEDS: DELTASONE 40 MG PO (08:31)
[2025-03-13] MEDS: MUCINEX 1200 MG PO ×2 (08:31→20:25)
--- NOTE | 2025-03-13 08:50 | W.PN.PUL3 ---
Today's Communication / Plan
-
Continue antibiotics as per ID
History of 30+ Spiriva with nebulized albuterol QID
Mucolytic's
Up OOB as tolerated
Supplemental O2 to maintain SpO2 88-95%, weaning down O2 as tolerated
Ambulatory pulse oximetry prior to discharge
He usually follows with pulmonology at [facility] (Dr. Hart), but he is interested in following closer. Although information will be left in his chart for him to see us in the office
Pulmonary service will continue to follow along
Assessment
-
Assessment: 64-year-old male former tobacco smoker with a past medical history of COPD, kidney transplant, chronic immunosuppressive use, hypertension, PAD, and DM type II who presents with cough + SOB. He said he has had a cough for about 11
weeks and it worsened over the last 3 weeks. He follows with pulmonology at [facility], Dr. Hart, and he was told that he has a viral illness. He does not normally have a cough. Also denied any fevers prior to arrival. He is not on home oxygen.
Also denies nausea/vomiting/diarrhea/abdominal pain. He is on Stiolto for COPD. In the ER he was afebrile to 99.2 �F, pulse rate 116, respiratory rate 20, BP 108/70 and saturating 92% on room air. Labs showed leukocytosis to 12.7, sodium 131,
creatinine 1.5, proBNP 207, troponin negative at <0.012, and COVID-19 antigen negative. Flu swab is negative, blood cultures were collected and CXR showed a left basilar infiltrate likely due to pneumonia. He was given 1 L NS 0.9% in the ER,
DuoNebs + cefepime/vancomycin, and admitted to telemetry under the hospitalist. Pulmonary service is now consulted for additional management/recommendations.
Chronic Conditions FRONT OFFICE REPRESENTATIVE: COPD, former tobacco smoker, kidney transplant, hypertension, PAD, diabetes mellitus type 2
Impression:
#CAP involving left lower lobe likely due to Streptococcus pneumonia (sputum culture positive)
#Acute COPD exacerbation due to above
#Acute respiratory failure with hypoxia due to above
#Left-sided complex parapneumonic effusion
#Chronic cough
#Renal transplant (2018 � [facility]) on chronic immunosuppressives
#DM type II complicated by hyperglycemia
#Former tobacco smoker
Plan:
- Patient's had a cough for about 2.5 months, however it has been worsening over the last several weeks. CXR on admission here shows a left basilar infiltrate/opacity and sputum culture is positive for Streptococcus pneumoniae
- Prior CXR from 07/11/2023 showed LLL pleural tenting, although prior CT chest from January 2021 showed normal bases
- He has centrilobular emphysema/COPD and is on stiolto at home --> continue Striverdi + Spiriva while hospitalized along with nebulized albuterol QID
- If he is too SOB to take the SMI then would change inhalers to nebulized form
- prn nebulized albuterol - not currently bronchospastic
- Maintain SpO2 88-95% with supplemental O2 and wean down as tolerated
- Encourage pt to get up OOB as tolerated
- Incentive spirometer encouraged q1hr while awake
- Mucolytics - raise mucinex to 1200mg q12hr
- prn anti-tussants
- Continue prednisone with 40mg 5 days (he says he takes prednisone at home, 1.5mg daily for his kidney transplant)
- Continue with broad spectrum ABx - currently on ceftriaxone + zithromax s/p cefepime + IV vancomycin
- Legionella + strep pneumonia urine antigens negative, although respiratory culture positive for Streptococcus pneumoniae; follow-up blood cultures ( � shows NGTD); MRSA swab negative --> IV vancomycin DC'd on 03/12
- Trend WBC and monitor for fevers
- Continue IVF with NS @ 80cc/hr - would stop by tonight to avoid volume overload
- Given he is immunosuppressed, would plan for 7-10 days total of Abx assuming he continues to clinically improve and remains afebrile for 48 hours prior to stopping antibiotics
- ID consulted - recs appreciated
- Chest ultrasound from 03/11/2025 showed a small complex left-sided pleural effusion measuring 5.1 x 2.7 x 4.2 cm. Effusion is too small to be tapped. If he starts to develop recurrent fevers then would re-check chest ultrasound to see if it is
enlarging, and would favor at least diagnostic thoracentesis in that scenario
- Continue immunosuppressive's with mycophenolate + tacrolimus
- Follow up tacrolimus level (checked this AM - levels to be drawn immediately prior to dose)
- Keep MAP>65
- Replete electrolytes with K>4, Mg>2
- Trend H/H and transfuse if needed to keep Hb>7g/dL; keep plt>20k, unless there is concern for bleeding then keep plt>50k
- Maintain euglycemia, especially while on steroids, with goal BG >100 and <180
- DVT ppx: LMWH
Pulmonary service will continue to follow along. He will follow-up with his pulmonary doctor, Dr. Hart, at [facility] following discharge. If he wishes to follow with a gluing machine operator electronic closer then he is welcome to see us at the [facility] office.
Data:
CXR 03/11/2025: There is a left basilar infiltrate favored to represent pneumonia. Additionally there is a likely small left pleural effusion, likely parapneumonic effusion. Recommend follow-up to ensure resolution.
Total time spent today was 36 minutes for this encounter. Time includes reviewing laboratory test/imaging results, reviewing pertinent medical records, obtaining and reviewing medical history, performing an appropriate exam, ordering medications,
tests and procedures. Time also includes documentation of this encounter, coordinating patient care and communicating with other healthcare professionals. Total time does not include separately billed tests performed on this date of service.
Subjective Data
-
Date of Service:
Date of Service: March 13, 2025
Chief Complaint: Pulmonary Follow Up
Subjective:
Patient seen and evaluated today bedside. Currently on 2 L/min nasal cannula. He feels better. Bringing up his phlegm mostly okay, although sometimes it is hard to cough out secretions. Denies chest pain, RAMOS, nausea, fevers or chills.
Review of Systems
General: Other (Negative unless mentioned above)
Objective Data
Data Reviewed
Vital Signs / I&O / Oxygen:
Vital Signs
Temp Pulse Resp BP Pulse Ox
98.5 F 60 16 108/61 98
03/13/25 08:00 03/13/25 08:30 03/13/25 08:21 03/13/25 08:30 03/13/25 08:21
Intake and Output
03/12/25 03/13/25 03/14/25
06:59 06:59 06:59
Intake Total 480 / 480 1320 / 1320
Output Total 1125 / 1125 1650 / 1650
Balance -645 / -645 -330 / -330
SaO2 98
Nasal Cannula flow liters per 2.5
minute
Physical Exam
General: Respiratory Distress (negative), Comfortable, Chills (negative) and Sweats (negative)
HEENT: Normocephalic and Anicteric
Cardiovascular: S1-S2 and Peripheral Edema (negative)
Respiratory: Clear, Wheeze (negative), Crackles (negative), Rhonchi (negative) and Non-Labored Respirations
GI: Soft, Non Distended, Non Tender and Normal Bowel Sounds
Neurology: AO x 3 and Tremors (negative)
Skin: Warm, Dry, Cyanosis (negative) and Jaundice (negative)
Labs/Micro/Reports
Lab Data
03/13/25 07:44
03/13/25 07:44
Microbiology
03/11/25 14:48 Sputum Respiratory Culture - Preliminary
Streptococcus pneumoniae
03/11/25 14:48 Sputum Gram Stain - Preliminary
03/11/25 14:17 Blood/Venous Blood Culture - Preliminary
No Growth in 24 hours- Final report to follow
03/11/25 14:17 Blood/Venous Blood Culture - Preliminary
No Growth in 24 hours- Final report to follow
03/11/25 18:07 Urine Legionella Urinary Antigen - Final
Negative for Legionella pneumophila Serogroup 1 antigen.
A negative result does not rule out the possiblity of
Legionella infection due to other serogroups or species of
Legionella. Clinical correlation is recommended.
03/11/25 18:07 Urine Streptococcus pneumoniae Antigen (M - Final
Negative for Streptococcus pneumoniae antigen.
A negative result does not exclude infection with
Streptococcus pneumoniae. Clinical correlation is
recommended.
03/11/25 16:38 Nose Nasal Screen MRSA (PCR) - Final
MRSA not detected - performed by PCR methodology.
03/11/25 12:20 Nasal Swab Influenza Types A & B ([facility]) - Final
Negative for Influenza A & B, NAAT
Negative results must be combined with clinical observations
and patient history.
Nucleic Acid Amplification test (NAAT)performed on the
[employer] platform.
[2025-03-13 08:56] LABS: Blood Urea Nitrogen 23 mg/dl (9-20); Calcium 8.8 mg/dl (8.4-10.2); Carbon Dioxide 18 mmol/L (22-30); Chloride 108 mmol/L (98-107); Estimated Creatinine Clearance 62 ml/min; Glucose 221 mg/dl (70-99); Potassium 5.3 mmol/L (3.5-5.1); Sodium 137 mmol/L (135-145); eGFR > 60.00
[2025-03-13 09:04] LABS: Vancomycin Random 10.5 ug/ml
--- NOTE | 2025-03-13 10:16 | W.PN.ID1 ---
Date of Service
Date of Service: March 13, 2025
Today's Communication
Continue antibiotics.
Assessment / Plan
LLL PNA 2* Strep. pneumoniae
Leukocytosis
Cough
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
COPD
Hx renal failure
HTN
Recommendations:
Continue with ceftriaxone 2 g IV every 24 hours.
Continue with Azithromycin (day #2) for the present (for anti-inflammatory properties given recovery of strep pneumo)
Monitor white count and temperature curve.
Monitor sputum production.
Await final susceptibility data.
Continue with supportive measures.
Further recommendations as additional data is returned.
Chief Complaint
-: Pneumonia
Subjective / Review of Systems
Patient seen and examined. Reports feeling somewhat improved today. Still with cough, although decreasing. Denies fevers or chills.
Vital Signs / Physical Exam
Vital Signs
Vital Signs
Temp Pulse Resp BP Pulse Ox
98.5 F 60 16 108/61 98
03/13/25 08:00 03/13/25 08:30 03/13/25 08:21 03/13/25 08:30 03/13/25 08:21
Physical Exam
Constitutional: No Acute Distress, Comfortable and Non-toxic
Eyes: Sclera Anicteric
Cardiovascular: S1/S2; Negative S3/S4
Pulmonary: Rhonchi (Scattered), Coarse and Non Labored
Gastrointestinal: Soft and Non Tender
Neurological: Awake and Alert
Psychological: Calm
Objective Data
Lab Data
Lab Results
03/13/25 07:44
03/13/25 07:44
Estimated Creat Clear 62 ml/min 03/13/25 07:44
Lactic Acid 0.9 mmol/L (0.7-2.0) 03/11/25 14:17
Total Bilirubin 1.3 mg/dl (0.2-1.3) 03/11/25 12:20
AST 19 U/L (17-59) 03/11/25 12:20
ALT 18 U/L (0-50) 03/11/25 12:20
Alkaline Phosphatase 65 U/L (38-126) 03/11/25 12:20
Most recent labs reviewed.
Micro Results:
03/11/25 14:48 Respiratory Culture - Preliminary
Sputum Streptococcus pneumoniae
Gram Stain - Preliminary
03/11/25 14:17 Blood Culture - Preliminary
Blood/Venous No Growth in 24 hours- Final report to follow
03/11/25 14:17 Blood Culture - Preliminary
Blood/Venous No Growth in 24 hours- Final report to follow
03/11/25 18:07 Legionella Urinary Antigen - Final
Urine Negative for Legionella pneumophila Serogroup 1 antigen.
A negative result does not rule out the possiblity of
Legionella infection due to other serogroups or species of
Legionella. Clinical correlation is recommended.
Streptococcus pneumoniae Antigen (M - Final
Negative for Streptococcus pneumoniae antigen.
A negative result does not exclude infection with
Streptococcus pneumoniae. Clinical correlation is
recommended.
03/11/25 16:38 Nasal Screen MRSA (PCR) - Final
Nose MRSA not detected - performed by PCR methodology.
03/11/25 12:20 Influenza Types A & B ([facility]) - Final
Nasal Swab Negative for Influenza A & B, NAAT
Negative results must be combined with clinical observations
and patient history.
Nucleic Acid Amplification test (NAAT)performed on the
[email or web address] platform.
Imaging:
03/11/2025 CXR (2 view): Left basilar infiltrate noted. Suspected small left effusion. No pneumothorax. Please see full dictation for additional detail.
Care Review
Plan reviewed with: Physician (Hospitalist)
[2025-03-13 11:00] VITALS: BP 138/74
--- NOTE | 2025-03-13 11:02 | W.PN.HOSP.TC ---
Today's Communication/Plan
-
consider cautious wean of steroids in pt with IDDM, as per Pulm med
Assessment / Plan
Assessment / Plan
Community Acquired pneumonia
Sepsis 2/2 Above
Small left parapneumonic effusion
Hypoxic Respiratory Insufficiency
-admit to medicine
-continue Cefepime and Azithromycin for atypical coverage, Vancomycin stopped
-Mucinex, acapella
-F/U MRSA swab, Legionalla, Strep Pneumo Ag neg, but with pos culture
-F/U blood cultures NGTD, lactate 0.9
-left chest US evaluated effusion; patient will require repeat imaging in 48 hours to monitor. Contacted by radiology that effusion was too small to drain and they requested to cancel order- done
Hx Renal Transplant
-PRODUCTION PACKAGER Cellcept, Tacrolimus
-F/U Tacrolimus level
Mild BC in setting of sepsis
-IVF as above
-F/U urine studies
-hold PRODUCTION PACKAGER Lisinopril
-monitor renal function. Creat 1.5-->1.3-->1.1
K 4.7-->5.3
-low threshold for Nephrology consult if renal function not improved tomorrow. Discussed with Dr. Lee, he is aware pt admitted and will be available if needed
Essential HTN
-hold PRODUCTION PACKAGER Lisinopril (especially with mild hyperkalemia)
-PRODUCTION PACKAGER Nifedipine with hold parameters
BP currently 108/61
IDDM
-patient takes Lantus 15 units BID here
-ordered for 8 units BID, adjust as needed
-ISS low
-Diabetic Diet
glu 108-286
Hx COPD
-s/p lung volume reduction surgery
-no active wheezing on exam
-continue home inhalers and standing duonebs
Peripheral Arterial Disease
s/p stents RLE 1-2 years ago
-PRODUCTION PACKAGER aspirin/Plavix
HLD - PRODUCTION PACKAGER Statin
Consult Pulm and ID
DVT PPx SCD
FULL CODE
Anticipated Discharge: 24 - 48 hours
Subjective/Interval History
-
Date of Service: March 13, 2025
feels better, still with productive coughing
Objective Data
-
Labs:
Laboratory Results
03/13/25
07:44
WBC 10.4
Hgb 15.3
Hct 45.5
Plt Count 313 D
Sodium 137
Potassium 5.3 H
Chloride 108 H
Carbon Dioxide 18 L
BUN 23 H
Creatinine 1.1
Glucose 221 H
Calcium 8.8
Vital Signs:
Vital Signs
Temp Pulse Resp BP Pulse Ox
98.5 F 60 16 108/61 98
03/13/25 08:00 03/13/25 08:30 03/13/25 08:21 03/13/25 08:30 03/13/25 08:21
I&O
03/12/25 03/13/25 03/14/25
06:59 06:59 06:59
Intake Total 480 / 480 1320 / 1320
Output Total 1125 / 1125 1650 / 1650
Balance -645 / -645 -330 / -330
Review of Systems
-
History Source: Patient and Coordinated Provider
Constitutional: Reports Fever (100.6 on 03/11 @15:19)
Respiratory: Reports Cough (productive)
Cardiac: Reports No Symptoms; Denies Chest Pain
Genitourinary: Reports No Symptoms
Musculoskeletal: Reports No Symptoms
Neuro: Reports No Symptoms
Physical Exam
-
General: Well Developed, Well Nourished and No Apparent Distress
HEENT: Normocephalic, Atraumatic and Moist Mucous Membranes
Respiratory: Rhonchi (rhonchus cough); Negative Wheezes (clearer with improved air movement) or Rales
Cardiac: Regular Rhythm and S1/S2
GI: Soft, Nontender and Nondistended
Musculoskeletal: No Clubbing, No Cyanosis and No Edema
Skin: Warm and Dry
Neuro: Awake, Alert and Oriented
[2025-03-13 12:04] LABS: Glucose - Point of Care 314 mg/dl (70-99)
[2025-03-13] MEDS: NOVOLOG FLEXPEN-LOW RESISTANCE 4 UNITS SC (12:37)
[2025-03-13] MEDS: NSS 1000 IV (13:33)
[2025-03-13] MEDS: ZITHROMAX 500 MG PO (13:34)
[2025-03-13 14:45] LABS: Blood Urea Nitrogen 25 mg/dl (9-20); Calcium 9.3 mg/dl (8.4-10.2); Carbon Dioxide 22 mmol/L (22-30); Chloride 107 mmol/L (98-107); Estimated Creatinine Clearance 68 ml/min; Glucose 299 mg/dl (70-99); Potassium 5.5 mmol/L (3.5-5.1); Sodium 137 mmol/L (135-145); eGFR > 60.00
[2025-03-13 16:00] VITALS: BP 124/68
[2025-03-13] MEDS: TYLENOL 650 MG PO (16:27)
[2025-03-13] MEDS: PLAVIX 75 MG PO (17:09)
[2025-03-13] MEDS: ROCEPHIN 2000 MG IV (17:10)
[2025-03-13] MEDS: LOVENOX 40 MG SC (17:10)
[2025-03-13] MEDS: STERILE WATER FOR INJECTION 20 ML IV (17:10)
[2025-03-13 17:24] LABS: Glucose - Point of Care 326 mg/dl (70-99)
[2025-03-13] MEDS: NOVOLOG FLEXPEN-MODERATE RESISTANCE 7 UNITS SC (18:18)
[2025-03-13] MEDS: NOVOLOG FLEXPEN-LOW RESISTANCE SC (18:30)
[2025-03-13 19:00] VITALS: BP 140/74
[2025-03-13 20:23] LABS: Glucose - Point of Care 213 mg/dl (70-99)
[2025-03-13] MEDS: PROCARDIA XL (EXTENDED RELEASE) 60 MG PO (20:25)
[2025-03-13] MEDS: LIPITOR 40 MG PO (21:18)
[2025-03-13] MEDS: LOW STRENGTH ASPIRIN 81 MG PO (21:18)
[2025-03-13] MEDS: FLOMAX 0.4 MG PO (21:18)
[2025-03-13 23:00] VITALS: BP 116/78
[2025-03-14] VITALS (7 sets, daily range): BP systolic 105–174; BP diastolic 59–94
[2025-03-14] MEDS: NSS 1000 IV ×2 (03:19→17:47)
[2025-03-14 05:55] LABS: Glucose - Point of Care 158 mg/dl (70-99)
[2025-03-14] MEDS: LANTUS 0.08 UNITS SC ×2 (05:55→20:26)
[2025-03-14 06:35] LABS: % Basophils 0.2 % (0-2); % Eosinophils 0.2 % (0-6); % Immature Granulocytes 0.8 % (0-0.5); % Monocytes 6.8 % (1.7-9.3); Absolute Immature Granulocytes 0.1 10^3/uL (0-0.05); Absolute Lymphocytes 0.8 10^3/uL (1.2-3.4); Absolute Monocytes 0.9 10^3/uL (0.1-0.6); Absolute Neutrophils 10.7 10^3/uL (1.4-6.5); Hematocrit 44.3 % (39.0-52.0); Hemoglobin 14.7 g/dL (13.0-18.0); Mean Corp Hgb Conc. 33.2 g/dL (33.0-37.0); Mean Corpuscular Hgb 27.8 pg (27.0-31.0); Mean Corpuscular Volume 83.9 fL (80.0-94.0); Mean Platelet Volume 10.1 fL (7.4-10.4); Nucleated Red Blood Cells % 0 % (-); Platelet Count 364 10^3/uL (130-400); Red Blood Cell Count 5.28 10^6/uL (4.70-6.10); Red Cell Dist. Width 13.2 % (11.5-14.5); White Blood Cell Count 12.4 10^3/uL (4.8-10.8)
[2025-03-14 07:13] LABS: Blood Urea Nitrogen 23 mg/dl (9-20); Carbon Dioxide 23 mmol/L (22-30); Chloride 108 mmol/L (98-107); Estimated Creatinine Clearance 68 ml/min; Glucose 152 mg/dl (70-99); Potassium 4.8 mmol/L (3.5-5.1); Sodium 140 mmol/L (135-145); eGFR > 60.00
[2025-03-14] MEDS: PROGRAF 2 MG PO ×2 (07:39→20:26)
[2025-03-14] MEDS: MUCINEX 1200 MG PO ×2 (07:39→20:26)
[2025-03-14] MEDS: DELTASONE 40 MG PO (07:39)
[2025-03-14] MEDS: PROCARDIA XL (EXTENDED RELEASE) 60 MG PO ×2 (07:39→20:27)
[2025-03-14] MEDS: NOVOLOG FLEXPEN-MODERATE RESISTANCE 1 UNITS SC (07:42)
[2025-03-14] MEDS: CELLCEPT 250 MG PO ×2 (07:42→20:26)
[2025-03-14] MEDS: VENTOLIN NEBULES 2.5 MG INH ×3 (08:07→16:04)
[2025-03-14] MEDS: SPIRIVA RESPIMAT 2.5 MCG 2 PUFF INH (08:08)
[2025-03-14] MEDS: STRIVERDI RESPIMAT 2 PUFF INH (08:09)
[2025-03-14 09:36] LABS: Tacrolimus (Prograft - FK506) 11.1 ng/mL
--- NOTE | 2025-03-14 10:28 | W.PN.ID1 ---
Date of Service
Date of Service: March 14, 2025
Today's Communication
Continue antibiotics.
Assessment / Plan
LLL PNA 2* Strep. pneumoniae
Leukocytosis
Cough
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
Hx renal transplant.
COPD
Hx renal failure
HTN
Recommendations:
Continue with ceftriaxone 2 g IV every 24 hours.
Continue with Azithromycin (day #3 of 5) for for anti-inflammatory properties given recovery of strep pneumo.
Monitor white count and temperature curve.
Monitor sputum production.
Continue with supportive measures.
����������������������������������������������������������
Chief Complaint
-: Pneumonia
Subjective / Review of Systems
Patient seen & examined. Reports decreased sputum production. Breathing comfortable.
Review of Systems: No Fever and No Chills
Vital Signs / Physical Exam
Vital Signs
Vital Signs
Temp Pulse Resp BP Pulse Ox
99.4 F 101 16 138/78 96
03/14/25 07:00 03/14/25 08:13 03/14/25 08:13 03/14/25 07:00 03/14/25 08:13
Physical Exam
Constitutional: No Acute Distress, Comfortable and Non-toxic
Eyes: Sclera Anicteric
Cardiovascular: S1/S2; Negative S3/S4
Pulmonary: Rhonchi (Scattered), Coarse and Non Labored
Gastrointestinal: Soft and Non Tender
Neurological: Awake and Alert
Psychological: Calm
Objective Data
Lab Data
Lab Results
03/14/25 06:07
03/14/25 06:07
Estimated Creat Clear 68 ml/min 03/14/25 06:07
Lactic Acid 0.9 mmol/L (0.7-2.0) 03/11/25 14:17
Total Bilirubin 1.3 mg/dl (0.2-1.3) 03/11/25 12:20
AST 19 U/L (17-59) 03/11/25 12:20
ALT 18 U/L (0-50) 03/11/25 12:20
Alkaline Phosphatase 65 U/L (38-126) 03/11/25 12:20
Most recent labs reviewed.
Micro Results:
03/11/25 14:48 Respiratory Culture - Preliminary
Sputum Streptococcus pneumoniae
Gram Stain - Preliminary
03/11/25 14:17 Blood Culture - Preliminary
Blood/Venous No Growth in 48 hours- Final report to follow
03/11/25 14:17 Blood Culture - Preliminary
Blood/Venous No Growth in 48 hours- Final report to follow
03/11/25 18:07 Legionella Urinary Antigen - Final
Urine Negative for Legionella pneumophila Serogroup 1 antigen.
A negative result does not rule out the possiblity of
Legionella infection due to other serogroups or species of
Legionella. Clinical correlation is recommended.
Streptococcus pneumoniae Antigen (M - Final
Negative for Streptococcus pneumoniae antigen.
A negative result does not exclude infection with
Streptococcus pneumoniae. Clinical correlation is
recommended.
03/11/25 16:38 Nasal Screen MRSA (PCR) - Final
Nose MRSA not detected - performed by PCR methodology.
03/11/25 12:20 Influenza Types A & B ([facility]) - Final
Nasal Swab Negative for Influenza A & B, NAAT
Negative results must be combined with clinical observations
and patient history.
Nucleic Acid Amplification test (NAAT)performed on the
[employer] platform.
Imaging:
03/11/2025 CXR (2 view): Left basilar infiltrate noted. Suspected small left effusion. No pneumothorax. Please see full dictation for additional detail.
Care Review
Plan reviewed with: Physician (Hospitalist)
[2025-03-14 11:31] LABS: Glucose - Point of Care 141 mg/dl (70-99)
[2025-03-14] MEDS: NOVOLOG FLEXPEN-MODERATE RESISTANCE SC (11:32)
--- NOTE | 2025-03-14 13:23 | W.PN.HOSP.TC ---
Today's Communication/Plan
-
decrease steroid dose, stop when okay with Pulm
follow BMP
Assessment / Plan
Assessment / Plan
Community Acquired pneumonia
Sepsis 2/2 Above
Small left parapneumonic effusion
Hypoxic Respiratory Insufficiency
-admit to medicine
-continue Cefepime and Azithromycin for atypical coverage, Vancomycin stopped
-Mucinex, acapella
-F/U MRSA swab, Legionalla, Strep Pneumo Ag neg, but with pos culture
-F/U blood cultures NGTD, lactate 0.9
-left chest US evaluated effusion; patient will require repeat imaging in 48 hours to monitor. Contacted by radiology that effusion was too small to drain and they requested to cancel order- done
Hx Renal Transplant
-INVESTIGATOR CLAIMS Cellcept, Tacrolimus
-F/U Tacrolimus level
immunosuppressed
Mild BC in setting of sepsis
-IVF as above
-F/U urine studies
-hold INVESTIGATOR CLAIMS Lisinopril
-monitor renal function. Creat 1.5-->1.3-->1.1-->1.0
K 4.7-->5.3-->5.5-->4.8
elevated K most likely due to elevated glu
Essential HTN
-hold INVESTIGATOR CLAIMS Lisinopril (especially with mild hyperkalemia)
-INVESTIGATOR CLAIMS Nifedipine with hold parameters
BP currently 105/59
IDDM
-patient takes Lantus 15 units BID here
-ordered for 8 units BID, adjust as needed
-ISS mod
-Diabetic Diet
glu 108-286
will decrease steroids, should help reduce glu
Hx COPD
-s/p lung volume reduction surgery
-no active wheezing on exam
-continue home inhalers and standing duonebs
Peripheral Arterial Disease
s/p stents RLE 1-2 years ago
-INVESTIGATOR CLAIMS aspirin/Plavix
HLD - INVESTIGATOR CLAIMS Statin
Consult Pulm and ID
DVT PPx SCD
FULL CODE
Anticipated Discharge: 24 - 48 hours
Subjective/Interval History
-
Date of Service: March 14, 2025
Generally feeling better, cough is less productive
Objective Data
-
Labs:
Laboratory Results
03/14/25
06:07
WBC 12.4 H
Hgb 14.7
Hct 44.3
Plt Count 364
Sodium 140
Potassium 4.8
Chloride 108 H
Carbon Dioxide 23
BUN 23 H
Creatinine 1.0
Glucose 152 H
Calcium 9.0
Vital Signs:
Vital Signs
Temp Pulse Resp BP Pulse Ox
98.8 F 95 16 105/59 93
03/14/25 11:00 03/14/25 11:29 03/14/25 11:29 03/14/25 11:00 03/14/25 11:00
I&O
03/13/25 03/14/25 03/15/25
06:59 06:59 06:59
Intake Total 1320 / 1320 2820 / 2820
Output Total 1650 / 1650 3200 / 3200
Balance -330 / -330 -380 / -380
Review of Systems
-
History Source: Patient and Coordinated Provider
Constitutional: Reports Fever (100.6 on 03/11 @15:19, none since)
Respiratory: Reports Cough (productive)
Cardiac: Reports No Symptoms; Denies Chest Pain
Genitourinary: Reports No Symptoms
Musculoskeletal: Reports No Symptoms
Neuro: Reports No Symptoms
Physical Exam
-
General: Well Developed, Well Nourished and No Apparent Distress
HEENT: Normocephalic, Atraumatic and Moist Mucous Membranes
Respiratory: Rhonchi (rhonchus cough); Negative Wheezes (clearer with improved air movement) or Rales
Cardiac: Regular Rhythm and S1/S2
GI: Soft, Nontender and Nondistended
Musculoskeletal: No Clubbing, No Cyanosis and No Edema
Skin: Warm and Dry
Neuro: Awake, Alert and Oriented
[2025-03-14] MEDS: ZITHROMAX 500 MG PO (13:34)
[2025-03-14 16:43] LABS: Glucose - Point of Care 265 mg/dl (70-99)
--- NOTE | 2025-03-14 16:45 | W.PN.PUL3 ---
Today's Communication / Plan
-
Continue antibiotics as per ID
Continue Striverdi + Spiriva Spiriva with nebulized albuterol QID
Mucolytics
Up OOB as tolerated
Continue prednisone with taper
Supplemental O2 to maintain SpO2 88-95%, weaning down O2 as tolerated
Ambulatory pulse oximetry prior to discharge
He usually follows with pulmonology at [facility] (Dr. Hart), but he is interested in following closer. Our office information will be left in his chart
Pulmonary service will continue to follow along
Assessment
-
Assessment: 64-year-old male former tobacco smoker with a past medical history of COPD, kidney transplant, chronic immunosuppressive use, hypertension, PAD, and DM type II who presents with cough + SOB. He said he has had a cough for about 11
weeks and it worsened over the last 3 weeks. He follows with pulmonology at [facility], Dr. Hart, and he was told that he has a viral illness. He does not normally have a cough. Also denied any fevers prior to arrival. He is not on home oxygen.
Also denies nausea/vomiting/diarrhea/abdominal pain. He is on Stiolto for COPD. In the ER he was afebrile to 99.2 �F, pulse rate 116, respiratory rate 20, BP 108/70 and saturating 92% on room air. Labs showed leukocytosis to 12.7, sodium 131,
creatinine 1.5, proBNP 207, troponin negative at <0.012, and COVID-19 antigen negative. Flu swab is negative, blood cultures were collected and CXR showed a left basilar infiltrate likely due to pneumonia. He was given 1 L NS 0.9% in the ER,
DuoNebs + cefepime/vancomycin, and admitted to telemetry under the hospitalist. Pulmonary service is now consulted for additional management/recommendations.
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
Impression:
#CAP involving left lower lobe likely due to Streptococcus pneumonia (sputum culture positive)
#Acute COPD exacerbation due to above
#Acute respiratory failure with hypoxia due to above
#Left-sided complex parapneumonic effusion
#Chronic cough
#Renal transplant (2018 � [facility]) on chronic immunosuppressives
#DM type II complicated by hyperglycemia
#Former tobacco smoker
Plan:
- Patient's had a cough for about 2.5 months, however it has been worsening over the last several weeks. CXR on admission here shows a left basilar infiltrate/opacity and sputum culture is positive for Streptococcus pneumoniae
- Prior CXR from 07/11/2023 showed LLL pleural tenting, although prior CT chest from January 2021 showed normal bases
- CXR today (03/14) shows worsening of the left base, although clinically he is feeling better
- He has centrilobular emphysema/COPD and is on stiolto at home --> continue Striverdi + Spiriva while hospitalized along with nebulized albuterol QID
- If he is too SOB to take the SMI then would change inhalers to nebulized form
- prn nebulized albuterol - not currently bronchospastic
- Maintain SpO2 88-95% with supplemental O2 and wean down as tolerated; he will need home O2 assessment prior to discharge
- Encourage pt to get up OOB as tolerated
- Incentive spirometer encouraged q1hr while awake
- Mucolytics - mucinex to 1200mg q12hr
- prn anti-tussants
- Continue prednisone with taper (currently on 40mg daily - he says he takes prednisone at home, 1.5mg daily for his kidney transplant)
- Continue with broad spectrum ABx - currently on ceftriaxone + zithromax s/p cefepime + IV vancomycin
- Legionella + strep pneumonia urine antigens negative, although respiratory culture positive for Streptococcus pneumoniae; follow-up blood cultures (collected 03/11/25 � shows NGTD); MRSA swab negative --> IV vancomycin DC'd on 03/12
- Trend WBC and monitor for fevers
- Continue IVF with NS @ 80cc/hr - would stop now to avoid volume overload
- Given he is immunosuppressed, would plan for 10 days total of Abx assuming he continues to clinically improve and remains afebrile for 48 hours prior to stopping antibiotics
- ID consulted - recs appreciated; if ID feels strongly about only giving 5 days in setting of worsening LLL PNA on CXR today, then will ultimately defer to them
- Chest ultrasound from 03/11/2025 showed a small complex left-sided pleural effusion measuring 5.1 x 2.7 x 4.2 cm. Effusion is too small to be tapped. If he starts to develop recurrent fevers then would re-check chest ultrasound to see if it is
enlarging, and would favor at least diagnostic thoracentesis in that scenario
- Continue immunosuppressive's with mycophenolate + tacrolimus
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
- Keep MAP>65
- Replete electrolytes with K>4, Mg>2
- Trend H/H and transfuse if needed to keep Hb>7g/dL; keep plt>20k, unless there is concern for bleeding then keep plt>50k
- Maintain euglycemia, especially while on steroids, with goal BG >100 and <180
- DVT ppx: LMWH
Pulmonary service will continue to follow along. He wishes to follow-up with us at [facility]. He may continue to occasionally follow-up with his pulmonary doctor, Dr. Hart, at [facility]. I will leave our office information in his chart.
Data:
CXR 03/11/2025: There is a left basilar infiltrate favored to represent pneumonia. Additionally there is a likely small left pleural effusion, likely parapneumonic effusion. Recommend follow-up to ensure resolution.
Total time spent today was 39 minutes for this encounter. Time includes reviewing laboratory test/imaging results, reviewing pertinent medical records, obtaining and reviewing medical history, performing an appropriate exam, ordering medications,
tests and procedures. Time also includes documentation of this encounter, coordinating patient care and communicating with other healthcare professionals. Total time does not include separately billed tests performed on this date of service.
Subjective Data
-
Date of Service:
Date of Service: March 14, 2025
Chief Complaint: Pulmonary Follow Up
Subjective:
Patient seen earlier this morning (late note entry). Friends x 2 at bedside. He is currently on 2 L/min nasal cannula, and he is improving overall. Still has a cough and feels SOB with exertion. Denies fevers overnight; currently denies chest
pain, RAMOS, nausea, chills.
Review of Systems
General: Other (Negative unless mentioned above)
Objective Data
Data Reviewed
Vital Signs / I&O / Oxygen:
Vital Signs
Temp Pulse Resp BP Pulse Ox
99.4 F 101 16 138/78 96
03/14/25 07:00 03/14/25 08:13 03/14/25 08:13 03/14/25 07:00 03/14/25 08:13
Intake and Output
03/13/25 03/14/25 03/15/25
06:59 06:59 06:59
Intake Total 1320 / 1320 2820 / 2820
Output Total 1650 / 1650 3200 / 3200
Balance -330 / -330 -380 / -380
SaO2 96
Nasal Cannula flow liters per 2
minute
Physical Exam
General: Respiratory Distress (negative), Comfortable, Chills (negative) and Sweats (negative)
HEENT: Normocephalic and Anicteric
Cardiovascular: S1-S2 and Peripheral Edema (negative)
Respiratory: Clear, Wheeze (negative), Crackles (negative), Rhonchi (negative), Non-Labored Respirations and Other (Diminished breath sounds bilaterally)
GI: Soft, Non Distended, Non Tender and Normal Bowel Sounds
Neurology: AO x 3 and Tremors (negative)
Skin: Warm, Dry, Cyanosis (negative) and Jaundice (negative)
Labs/Micro/Reports
Lab Data
03/14/25 06:07
03/14/25 06:07
Microbiology
03/11/25 14:48 Sputum Respiratory Culture - Preliminary
Streptococcus pneumoniae
03/11/25 14:48 Sputum Gram Stain - Preliminary
03/11/25 14:17 Blood/Venous Blood Culture - Preliminary
No Growth in 48 hours- Final report to follow
03/11/25 14:17 Blood/Venous Blood Culture - Preliminary
No Growth in 48 hours- Final report to follow
03/11/25 18:07 Urine Legionella Urinary Antigen - Final
Negative for Legionella pneumophila Serogroup 1 antigen.
A negative result does not rule out the possiblity of
Legionella infection due to other serogroups or species of
Legionella. Clinical correlation is recommended.
03/11/25 18:07 Urine Streptococcus pneumoniae Antigen (M - Final
Negative for Streptococcus pneumoniae antigen.
A negative result does not exclude infection with
Streptococcus pneumoniae. Clinical correlation is
recommended.
03/11/25 16:38 Nose Nasal Screen MRSA (PCR) - Final
MRSA not detected - performed by PCR methodology.
03/11/25 12:20 Nasal Swab Influenza Types A & B ([facility]) - Final
Negative for Influenza A & B, NAAT
Negative results must be combined with clinical observations
and patient history.
Nucleic Acid Amplification test (NAAT)performed on the
[employer] platform.
[2025-03-14] MEDS: PLAVIX 75 MG PO (17:00)
[2025-03-14] MEDS: STERILE WATER FOR INJECTION 20 ML IV (17:01)
[2025-03-14] MEDS: ROCEPHIN 2000 MG IV (17:01)
[2025-03-14] MEDS: LOVENOX 40 MG SC (17:01)
[2025-03-14] MEDS: NOVOLOG FLEXPEN-MODERATE RESISTANCE 5 UNITS SC (17:01)
[2025-03-14 20:19] LABS: Glucose - Point of Care 344 mg/dl (70-99)
[2025-03-14] MEDS: LIPITOR 40 MG PO (20:26)
[2025-03-14] MEDS: LOW STRENGTH ASPIRIN 81 MG PO (20:26)
[2025-03-14] MEDS: FLOMAX 0.4 MG PO (20:27)
--- NOTE | 2025-03-15 00:05 | PTCARENOTE ---
Pt. HS BG 344. LUIS ANGEL Bowen made aware. Patient only wanted his scheduled 8 units of lantus. Plan of care ongoing.
[2025-03-15] MEDS: VENTOLIN NEBULES INH (01:15)
[2025-03-15 06:02] LABS: Glucose - Point of Care 93 mg/dl (70-99)
[2025-03-15] MEDS: NSS 1000 IV (06:02)
[2025-03-15] MEDS: LANTUS 0.08 UNITS SC ×2 (06:02→20:57)
[2025-03-15 07:00] VITALS: BP 148/92
[2025-03-15] MEDS: NOVOLOG FLEXPEN-MODERATE RESISTANCE SC (07:06)
[2025-03-15] MEDS: MUCINEX 1200 MG PO ×2 (07:10→20:57)
[2025-03-15] MEDS: PROGRAF 2 MG PO ×2 (07:11→20:58)
[2025-03-15] MEDS: DELTASONE 20 MG PO (07:11)
[2025-03-15] MEDS: PROCARDIA XL (EXTENDED RELEASE) 60 MG PO ×2 (07:11→20:57)
[2025-03-15] MEDS: CELLCEPT 250 MG PO ×2 (07:12→20:57)
[2025-03-15 07:37] LABS: Blood Urea Nitrogen 23 mg/dl (9-20); Calcium 9.6 mg/dl (8.4-10.2); Carbon Dioxide 27 mmol/L (22-30); Chloride 107 mmol/L (98-107); Estimated Creatinine Clearance 68 ml/min; Glucose 98 mg/dl (70-99); Potassium 4.9 mmol/L (3.5-5.1); Sodium 140 mmol/L (135-145); eGFR > 60.00
[2025-03-15] MEDS: STRIVERDI RESPIMAT 2 PUFF INH (07:38)
[2025-03-15] MEDS: VENTOLIN NEBULES 2.5 MG INH ×4 (07:38→20:23)
[2025-03-15] MEDS: SPIRIVA RESPIMAT 2.5 MCG 2 PUFF INH (07:38)
[2025-03-15 08:02] LABS: % Basophils 0.2 % (0-2); % Eosinophils 0.5 % (0-6); % Immature Granulocytes 0.8 % (0-0.5); % Lymphocytes 9.2 % (20.5-51.1); % Monocytes 7.1 % (1.7-9.3); % Neutrophils 82.2 % (42.2-75.2); Absolute Eosinophils 0.1 10^3/uL (0-0.7); Absolute Immature Granulocytes 0.1 10^3/uL (0-0.05); Absolute Lymphocytes 0.9 10^3/uL (1.2-3.4); Absolute Monocytes 0.7 10^3/uL (0.1-0.6); Absolute Neutrophils 8.3 10^3/uL (1.4-6.5); Hematocrit 43.8 % (39.0-52.0); Hemoglobin 14.9 g/dL (13.0-18.0); Mean Corpuscular Hgb 28.7 pg (27.0-31.0); Mean Corpuscular Volume 84.4 fL (80.0-94.0); Mean Platelet Volume 9.9 fL (7.4-10.4); Nucleated Red Blood Cells % 0 % (-); Platelet Count 386 10^3/uL (130-400); Red Blood Cell Count 5.19 10^6/uL (4.70-6.10); Red Cell Dist. Width 13.2 % (11.5-14.5); White Blood Cell Count 10.1 10^3/uL (4.8-10.8)
--- NOTE | 2025-03-15 12:11 | W.PN.ID1 ---
Date of Service
Date of Service: March 15, 2025
Today's Communication
Continue antibiotics. See below�
Assessment / Plan
LLL PNA 2* Strep. pneumoniae
Leukocytosis
Cough
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
Hx renal transplant.
COPD
Hx renal failure
HTN
Recommendations:
Continue with ceftriaxone 2 g IV every 24 hours. At discharge, will transition to cefdinir 300 mg p.o. twice daily, to complete a 14-day course (given underlying immunosuppression)
Continue with Azithromycin (day #4 of 5) for for anti-inflammatory properties given recovery of strep pneumo.
Monitor white count and temperature curve.
Monitor sputum production.
Continue with supportive measures.
����������������������������������������������������������
Chief Complaint
-: Pneumonia
Subjective / Review of Systems
Still with cough, although feeling improved. O2 requirements decreasing. No fevers or chills.
Vital Signs / Physical Exam
Vital Signs
Vital Signs
Temp Pulse Resp BP Pulse Ox
98.8 F 109 16 148/92 92
03/15/25 07:00 03/15/25 11:14 03/15/25 11:14 03/15/25 07:00 03/15/25 11:14
Physical Exam
Constitutional: No Acute Distress, Comfortable and Non-toxic
Eyes: Sclera Anicteric
Pulmonary: Rhonchi (Scattered), Coarse and Non Labored
Gastrointestinal: Soft and Non Tender
Neurological: Awake and Alert
Psychological: Calm
Objective Data
Lab Data
Lab Results
03/15/25 06:41
03/15/25 06:41
Estimated Creat Clear 68 ml/min 03/15/25 06:41
Lactic Acid 0.9 mmol/L (0.7-2.0) 03/11/25 14:17
Total Bilirubin 1.3 mg/dl (0.2-1.3) 03/11/25 12:20
AST 19 U/L (17-59) 03/11/25 12:20
ALT 18 U/L (0-50) 03/11/25 12:20
Alkaline Phosphatase 65 U/L (38-126) 03/11/25 12:20
Most recent labs reviewed.
Micro Results:
03/11/25 14:48 Respiratory Culture - Final
Sputum Streptococcus pneumoniae
Gram Stain - Final
03/11/25 14:17 Blood Culture - Preliminary
Blood/Venous No Growth in 72 hours- Final report to follow
03/11/25 14:17 Blood Culture - Preliminary
Blood/Venous No Growth in 72 hours- Final report to follow
03/11/25 18:07 Legionella Urinary Antigen - Final
Urine Negative for Legionella pneumophila Serogroup 1 antigen.
A negative result does not rule out the possiblity of
Legionella infection due to other serogroups or species of
Legionella. Clinical correlation is recommended.
Streptococcus pneumoniae Antigen (M - Final
Negative for Streptococcus pneumoniae antigen.
A negative result does not exclude infection with
Streptococcus pneumoniae. Clinical correlation is
recommended.
03/11/25 16:38 Nasal Screen MRSA (PCR) - Final
Nose MRSA not detected - performed by PCR methodology.
03/11/25 12:20 Influenza Types A & B ([facility]) - Final
Nasal Swab Negative for Influenza A & B, NAAT
Negative results must be combined with clinical observations
and patient history.
Nucleic Acid Amplification test (NAAT)performed on the
[employer] platform.
Imaging:
03/11/2025 CXR (2 view): Left basilar infiltrate noted. Suspected small left effusion. No pneumothorax. Please see full dictation for additional detail.
[2025-03-15 12:17] LABS: Glucose - Point of Care 239 mg/dl (70-99)
[2025-03-15] MEDS: NOVOLOG FLEXPEN-MODERATE RESISTANCE 3 UNITS SC (12:20)
[2025-03-15] MEDS: ZITHROMAX 500 MG PO (13:24)
[2025-03-15 15:00] VITALS: BP 156/96
[2025-03-15] MEDS: SODIUM CHLORIDE 3% FOR INHALATION 1 VIAL INH ×2 (15:31→20:23)
--- NOTE | 2025-03-15 16:28 | W.PN.PUL3 ---
Today's Communication / Plan
-
Continue antibiotics as per ID
Continue Striverdi + Spiriva Spiriva with nebulized albuterol QID
Mucolytics - add 3% today
Up OOB as tolerated
Continue prednisone with taper
Supplemental O2 to maintain SpO2 88-95%, weaning down O2 as tolerated
Ambulatory pulse oximetry prior to discharge
He usually follows with pulmonology at [facility] (Dr. Hart), but he is interested in following closer. Our office information will be left in his chart
Pulmonary service will continue to follow along
Assessment
-
Assessment: 64-year-old male former tobacco smoker with a past medical history of COPD, kidney transplant, chronic immunosuppressive use, hypertension, PAD, and DM type II who presents with cough + SOB. He said he has had a cough for about 11
weeks and it worsened over the last 3 weeks. He follows with pulmonology at [facility], Dr. Hart, and he was told that he has a viral illness. He does not normally have a cough. Also denied any fevers prior to arrival. He is not on home oxygen.
Also denies nausea/vomiting/diarrhea/abdominal pain. He is on Stiolto for COPD. In the ER he was afebrile to 99.2 �F, pulse rate 116, respiratory rate 20, BP 108/70 and saturating 92% on room air. Labs showed leukocytosis to 12.7, sodium 131,
creatinine 1.5, proBNP 207, troponin negative at <0.012, and COVID-19 antigen negative. Flu swab is negative, blood cultures were collected and CXR showed a left basilar infiltrate likely due to pneumonia. He was given 1 L NS 0.9% in the ER,
DuoNebs + cefepime/vancomycin, and admitted to telemetry under the hospitalist. Pulmonary service is now consulted for additional management/recommendations.
Chronic Conditions INTERNAL SALES: COPD, former tobacco smoker, kidney transplant, hypertension, PAD, diabetes mellitus type 2
Impression:
#CAP involving left lower lobe likely due to Streptococcus pneumonia (sputum culture positive)
#Acute COPD exacerbation due to above
#Acute respiratory failure with hypoxia due to above
#Left-sided complex parapneumonic effusion
#Chronic cough
#Renal transplant (2018 � [facility]) on chronic immunosuppressives
#DM type II complicated by hyperglycemia
#Former tobacco smoker
Plan:
- Patient's had a cough for about 2.5 months, however it has been worsening over the last several weeks. CXR on admission here shows a left basilar infiltrate/opacity and sputum culture is positive for Streptococcus pneumoniae
- Prior CXR from 07/11/2023 showed LLL pleural tenting, although prior CT chest from January 2021 showed normal bases
- CXR on 03/14 showed worsening of the left base, although clinically he is feeling better
- He has centrilobular emphysema/COPD and is on stiolto at home --> continue Striverdi + Spiriva while hospitalized along with nebulized albuterol QID
- If he is too SOB to take the SMI then would change inhalers to nebulized form
- prn nebulized albuterol - not currently bronchospastic
- Maintain SpO2 88-95% with supplemental O2 and wean down as tolerated; he will need home O2 assessment prior to discharge
- Encourage pt to get up OOB as tolerated
- Incentive spirometer encouraged q1hr while awake
- Mucolytics - mucinex to 1200mg q12hr
- prn anti-tussants
- Continue prednisone with taper (azith
he says he takes prednisone at home, 1.5mg daily for his kidney transplant)
- Continue with broad spectrum ABx - currently on ceftriaxone + zithromax s/p cefepime + IV vancomycin
- Legionella + strep pneumonia urine antigens negative, although respiratory culture positive for Streptococcus pneumoniae; follow-up blood cultures (collected 03/11/25 � shows NGTD); MRSA swab negative --> IV vancomycin DC'd on 03/12
- Trend WBC and monitor for fevers
- s/p IVF
- Given he is immunosuppressed, would plan for 10 days total of Abx assuming he continues to clinically improve and remains afebrile for 48 hours prior to stopping antibiotics
- ID consulted - recs appreciated; if ID feels strongly about only giving 5 days in setting of worsening LLL PNA on CXR from 03/14, then will ultimately defer to them
- Chest ultrasound from 03/11/2025 showed a small complex left-sided pleural effusion measuring 5.1 x 2.7 x 4.2 cm. Effusion is too small to be tapped. If he starts to develop recurrent fevers then would re-check chest ultrasound to see if it is
enlarging, and would favor at least diagnostic thoracentesis in that scenario
- Continue immunosuppressive's with mycophenolate + tacrolimus
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
- Keep MAP>65
- Replete electrolytes with K>4, Mg>2
- Trend H/H and transfuse if needed to keep Hb>7g/dL; keep plt>20k, unless there is concern for bleeding then keep plt>50k
- Maintain euglycemia, especially while on steroids, with goal BG >100 and <180
- DVT ppx: LMWH
Pulmonary service will continue to follow along. He wishes to follow-up with us at [facility]. He may continue to occasionally follow-up with his pulmonary doctor, Dr. Hart, at [facility]. I will leave our office information in his chart.
Data:
CXR 03/11/2025: There is a left basilar infiltrate favored to represent pneumonia. Additionally there is a likely small left pleural effusion, likely parapneumonic effusion. Recommend follow-up to ensure resolution.
Total time spent today was 41 minutes for this encounter. Time includes reviewing laboratory test/imaging results, reviewing pertinent medical records, obtaining and reviewing medical history, performing an appropriate exam, ordering medications,
tests and procedures. Time also includes documentation of this encounter, coordinating patient care and communicating with other healthcare professionals. Total time does not include separately billed tests performed on this date of service.
Subjective Data
-
Date of Service:
Date of Service: March 15, 2025
Chief Complaint: Pulmonary Follow Up
Subjective:
Patient seen and evaluated earlier today (late note entry). Currently on 2 L/min nasal cannula. He feels well. Afebrile overnight. Denies chest pain, RAMOS, fevers or chills.
Review of Systems
General: Other (Negative unless mentioned above)
Objective Data
Data Reviewed
Vital Signs / I&O / Oxygen:
Vital Signs
Temp Pulse Resp BP Pulse Ox
98.8 F 87 16 148/92 94
03/15/25 07:00 03/15/25 07:00 03/15/25 07:40 03/15/25 07:00 03/15/25 07:40
Intake and Output
03/14/25 03/15/25 03/16/25
06:59 06:59 06:59
Intake Total 2820 / 2820 3060 / 3060
Output Total 3200 / 3200 375 / 375
Balance -380 / -380 2685 / 2685
SaO2 94
Nasal Cannula flow liters per 2
minute
Physical Exam
General: Respiratory Distress (negative), Comfortable, Chills (negative) and Sweats (negative)
HEENT: Normocephalic and Anicteric
Cardiovascular: S1-S2 and Peripheral Edema (negative)
Respiratory: Clear, Wheeze (negative), Crackles (negative), Rhonchi (negative), Non-Labored Respirations and Other (Diminished breath sounds bilaterally)
GI: Soft, Non Distended, Non Tender and Normal Bowel Sounds
Neurology: AO x 3 and Tremors (negative)
Skin: Warm, Dry, Cyanosis (negative) and Jaundice (negative)
Labs/Micro/Reports
Lab Data
03/15/25 06:41
03/15/25 06:41
Microbiology
03/11/25 14:48 Sputum Respiratory Culture - Final
Streptococcus pneumoniae
03/11/25 14:48 Sputum Gram Stain - Final
03/11/25 14:17 Blood/Venous Blood Culture - Preliminary
No Growth in 72 hours- Final report to follow
03/11/25 14:17 Blood/Venous Blood Culture - Preliminary
No Growth in 72 hours- Final report to follow
[2025-03-15 16:54] LABS: Glucose - Point of Care 377 mg/dl (70-99)
[2025-03-15] MEDS: ROCEPHIN 2000 MG IV (17:00)
[2025-03-15] MEDS: LOVENOX 40 MG SC (17:00)
[2025-03-15] MEDS: PLAVIX 75 MG PO (17:00)
[2025-03-15] MEDS: STERILE WATER FOR INJECTION 20 ML IV (17:00)
[2025-03-15] MEDS: NOVOLOG FLEXPEN-MODERATE RESISTANCE 9 UNITS SC (17:06)
--- NOTE | 2025-03-15 17:35 | W.PN.HOSP.TC ---
Today's Communication/Plan
-
Showing improvement, hopefully off steroids next 1-2 days, which should help diabetic management
wean off oxygen as condition allows. ?require oxygen on dc
Assessment / Plan
Assessment / Plan
Community Acquired pneumonia
Sepsis 2/2 Above
Small left parapneumonic effusion
Hypoxic Respiratory Insufficiency
overall looks better, but still with hypoxemia, requiring oxygen
-admit to medicine
-continue Cefepime (Azithromycin for atypical coverage completed), Vancomycin stopped
-Mucinex, acapella
-F/U MRSA swab, Legionalla, Strep Pneumo Ag neg, but with pos culture
-F/U blood cultures NGTD, lactate 0.9
-left chest US evaluated effusion; Contacted by radiology that effusion was too small to drain and they requested to cancel order- done
Hx Renal Transplant
-[employer] Cellcept, Tacrolimus
-F/U Tacrolimus level
immunosuppressed
Mild BC in setting of sepsis
-IVF as above
-F/U urine studies
-hold [employer] Lisinopril
-monitor renal function. Creat 1.5-->1.3-->1.1-->1.0-->1.0
K 4.7-->5.3-->5.5-->4.8-->4.9
elevated K most likely due to elevated glu
Essential HTN
-hold [employer] Lisinopril (especially with mild hyperkalemia)
-[employer] Nifedipine with hold parameters
BP currently 105/59
IDDM
-patient takes Lantus 15 units BID here
-ordered for 8 units BID, adjust as needed
-ISS mod
-Diabetic Diet
glu 108-286
will decrease steroids, should help reduce glu
glu 93-377
Hx COPD
-s/p lung volume reduction surgery
-no active wheezing on exam
-continue home inhalers and standing duonebs
Peripheral Arterial Disease
s/p stents RLE 1-2 years ago
-[employer] aspirin/Plavix
HLD - [employer] Statin
Consult Pulm and ID
DVT PPx SCD
Prednisone decreased to 20 mg daily, potential dc next 1-2 days
FULL CODE
Anticipated Discharge: 24 - 48 hours
Subjective/Interval History
-
Date of Service: March 15, 2025
Feeling better, cough has diminished
Objective Data
-
Labs:
Laboratory Results
03/15/25
06:41
WBC 10.1
Hgb 14.9
Hct 43.8
Plt Count 386
Sodium 140
Potassium 4.9
Chloride 107
Carbon Dioxide 27
BUN 23 H
Creatinine 1.0
Glucose 98
Calcium 9.6
Vital Signs:
Vital Signs
Temp Pulse Resp BP Pulse Ox
98.8 F 117 18 156/96 94
03/15/25 15:00 03/15/25 15:00 03/15/25 15:00 03/15/25 15:00 03/15/25 15:00
I&O
03/14/25 03/15/25 03/16/25
06:59 06:59 06:59
Intake Total 2820 / 2820 3060 / 3060
Output Total 3200 / 3200 375 / 375
Balance -380 / -380 2685 / 2685
Review of Systems
-
History Source: Patient and Coordinated Provider
Constitutional: Reports Fever (100.6 on 03/11 @15:19, none since)
Respiratory: Reports Cough (productive)
Cardiac: Reports No Symptoms; Denies Chest Pain
Genitourinary: Reports No Symptoms
Musculoskeletal: Reports No Symptoms
Neuro: Reports No Symptoms
Physical Exam
-
General: Well Developed, Well Nourished and No Apparent Distress
HEENT: Normocephalic, Atraumatic and Moist Mucous Membranes
Respiratory: Rhonchi (rhonchus cough); Negative Wheezes (clearer with improved air movement) or Rales
Cardiac: Regular Rhythm and S1/S2
GI: Soft, Nontender and Nondistended
Musculoskeletal: No Clubbing, No Cyanosis and No Edema
Skin: Warm and Dry
Neuro: Awake, Alert and Oriented
[2025-03-15 20:29] LABS: Glucose - Point of Care 143 mg/dl (70-99)
[2025-03-15] MEDS: LIPITOR 40 MG PO (20:58)
[2025-03-15] MEDS: LOW STRENGTH ASPIRIN 81 MG PO (20:58)
[2025-03-15] MEDS: FLOMAX 0.4 MG PO (20:58)
[2025-03-15 23:00] VITALS: BP 129/84
[2025-03-16 05:59] LABS: Glucose - Point of Care 116 mg/dl (70-99)
[2025-03-16] MEDS: LANTUS 0.08 UNITS SC (05:59)
[2025-03-16] MEDS: PROCARDIA XL (EXTENDED RELEASE) 60 MG PO (07:23)
[2025-03-16] MEDS: DELTASONE 20 MG PO (07:23)
[2025-03-16] MEDS: NOVOLOG FLEXPEN-MODERATE RESISTANCE SC ×2 (07:23→16:35)
[2025-03-16] MEDS: MUCINEX 1200 MG PO (07:23)
[2025-03-16] MEDS: CELLCEPT 250 MG PO (07:23)
[2025-03-16] MEDS: PROGRAF 2 MG PO (07:24)
[2025-03-16] MEDS: VENTOLIN NEBULES 2.5 MG INH ×3 (07:27→15:43)
[2025-03-16] MEDS: SODIUM CHLORIDE 3% FOR INHALATION 1 VIAL INH ×3 (07:27→15:43)
[2025-03-16] MEDS: SPIRIVA RESPIMAT 2.5 MCG 2 PUFF INH (07:28)
[2025-03-16] MEDS: STRIVERDI RESPIMAT 2 PUFF INH (07:28)
[2025-03-16 07:39] VITALS: BP 162/85
[2025-03-16 11:18] LABS: Glucose - Point of Care 198 mg/dl (70-99)
--- NOTE | 2025-03-16 13:02 | W.PN.ID1 ---
Date of Service
Date of Service: March 16, 2025
Today's Communication
Continue antibiotics. See below�
Assessment / Plan
LLL PNA 2* Strep. pneumoniae
Leukocytosis
Cough
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
Hx renal transplant.
COPD
Hx renal failure
HTN
Recommendations:
Continue with ceftriaxone 2 g IV every 24 hours. At discharge, will transition to cefdinir 300 mg p.o. twice daily, to complete a 14-day course (through 03/24/25 given underlying immunosuppression)
Completed course of Azithromycin yesterday.
Monitor white count and temperature curve.
Monitor sputum production.
Continue with supportive measures.
����������������������������������������������������������
Chief Complaint
-: Pneumonia
Subjective / Review of Systems
Review of Systems: No Fever, No Chills, Cough, Sputum Production and No Chest Pain
Vital Signs / Physical Exam
Vital Signs
Vital Signs
Temp Pulse Resp BP Pulse Ox
98.8 F 102 16 162/85 93
03/16/25 07:39 03/16/25 11:21 03/16/25 11:21 03/16/25 07:39 03/16/25 11:21
Physical Exam
Constitutional: No Acute Distress, Comfortable and Non-toxic
Eyes: Sclera Anicteric
Pulmonary: Rhonchi (Scattered), Coarse and Non Labored
Gastrointestinal: Soft and Non Tender
Neurological: Awake and Alert
Psychological: Calm
Objective Data
Lab Data
Lab Results
03/15/25 06:41
03/15/25 06:41
Estimated Creat Clear 68 ml/min 03/15/25 06:41
Lactic Acid 0.9 mmol/L (0.7-2.0) 03/11/25 14:17
Total Bilirubin 1.3 mg/dl (0.2-1.3) 03/11/25 12:20
AST 19 U/L (17-59) 03/11/25 12:20
ALT 18 U/L (0-50) 03/11/25 12:20
Alkaline Phosphatase 65 U/L (38-126) 03/11/25 12:20
Most recent labs reviewed.
Micro Results:
03/11/25 14:17 Blood Culture - Preliminary
Blood/Venous No Growth in 4 days- Final report to follow
03/11/25 14:17 Blood Culture - Preliminary
Blood/Venous No Growth in 4 days- Final report to follow
03/11/25 14:48 Respiratory Culture - Final
Sputum Streptococcus pneumoniae
Gram Stain - Final
03/11/25 18:07 Legionella Urinary Antigen - Final
Urine Negative for Legionella pneumophila Serogroup 1 antigen.
A negative result does not rule out the possiblity of
Legionella infection due to other serogroups or species of
Legionella. Clinical correlation is recommended.
Streptococcus pneumoniae Antigen (M - Final
Negative for Streptococcus pneumoniae antigen.
A negative result does not exclude infection with
Streptococcus pneumoniae. Clinical correlation is
recommended.
03/11/25 16:38 Nasal Screen MRSA (PCR) - Final
Nose MRSA not detected - performed by PCR methodology.
03/11/25 12:20 Influenza Types A & B (OYEL) - Final
Nasal Swab Negative for Influenza A & B, NAAT
Negative results must be combined with clinical observations
and patient history.
Nucleic Acid Amplification test (NAAT)performed on the
[employer] NOW platform.
Imaging:
03/11/2025 CXR (2 view): Left basilar infiltrate noted. Suspected small left effusion. No pneumothorax. Please see full dictation for additional detail.
Care Review
Plan reviewed with: Physician (Hospitalist)
[2025-03-16] MEDS: NOVOLOG FLEXPEN-MODERATE RESISTANCE 1 UNITS SC (13:22)
--- NOTE | 2025-03-16 13:25 | W.PN.HOSP.TC ---
Today's Communication/Plan
-
wean O2 further
add IS
continue Acapella/mucolytics
continue IV Abx
Assessment / Plan
Assessment / Plan
Assessment:
Community Acquired pneumonia - strep pneumoniae
Sepsis POA due to pneumonia
Small left parapneumonic effusion
Hypoxic Respiratory Insufficiency
- remains on 1.5L NC
- continue Rocephin - transition to Cefdinir BID through 03/24/25
- s/p Azithromycin course
- Mucolytics/pulm toilet
- left chest US evaluated effusion; Contacted by radiology that effusion was too small to drain and they requested to cancel order- done
Hx Renal Transplant
- PLANER CHAIN OFFBEARER Cellcept, Tacrolimus
- F/U Tacrolimus level
immunosuppressed
Mild BC in setting of sepsis
- improved with IVF
- hold DINORA
Hyperkalemia
- improved
Essential HTN
- hold PLANER CHAIN OFFBEARER Lisinopril (especially with mild hyperkalemia)
- PLANER CHAIN OFFBEARER Nifedipine with hold parameters
IDDM
- patient takes Lantus 15 units BID here
- ordered for 8 units BID, adjust as needed
- ISS mod
- Diabetic Diet
Hx COPD
- s/p lung volume reduction surgery
- no active wheezing on exam
- continue home inhalers and standing duonebs
Peripheral Arterial Disease
s/p stents RLE 1-2 years ago
- PLANER CHAIN OFFBEARER aspirin/Plavix
HLD - PLANER CHAIN OFFBEARER Statin
DVT ppx: SCDs
Code: Full
Anticipated Discharge: Within 24 hours
Subjective/Interval History
-
Date of Service: March 16, 2025
SOB and breathing improving
1.5L NC at present
Objective Data
-
Vital Signs:
Vital Signs
Temp Pulse Resp BP Pulse Ox
98.8 F 102 16 162/85 93
03/16/25 07:39 03/16/25 11:21 03/16/25 11:21 03/16/25 07:39 03/16/25 11:21
I&O
03/15/25 03/16/25 03/17/25
06:59 06:59 06:59
Intake Total 3060 / 3060 1650 / 1650
Output Total 375 / 375 1050 / 1050
Balance 2685 / 2685 600 / 600
Physical Exam
-
General: No Apparent Distress
HEENT: Normocephalic and Atraumatic
Respiratory: Rhonchi
Cardiac: Regular Rhythm and S1/S2
GI: Soft
Genito-urinary: No Costovertebral Tender
Neuro: AO x 3
Psych: Calm
Data Reviewed
-
Total Time Spent with Patient (in minutes): 45
Labs: Labs Reviewed by me
[2025-03-16 15:28] VITALS: BP 114/84
--- NOTE | 2025-03-16 16:12 | CM ---
CM continues to follow for discharge planning to home. Currently on O2 with weaning in progress.
Plan: Follow for O2 needs at discharge.
--- NOTE | 2025-03-16 16:32 | W.DS.TRANS ---
DC Summary - [employer]
-
Discharge Instructions:
Discharge Diagnosis/Procedures strep pneumoniae pneumonia with sepsis, hypoxia
(Resolved)
Diet Diabetic, Carb Controlled
Activity As tolerated
Bathing Restrictions None
Instructions:
Stand-Alone Forms:
Changes to Home Medications: No
Discharge Medications:
DC Medications w/original date entered in [facility]
aspirin 81 mg chewable tablet ([place] Chewable Low Dose Aspirin) 81 mg PO HS Blood Clot Prevention/Tx 10/11/16
insulin glargine 100 unit/mL (3 mL) subcutaneous pen (Lantus Solostar U-100 Insulin) 15 unit SC BID Diabetes 07/11/23
mycophenolate mofetil 250 mg capsule 250 mg PO BID Transplant 07/11/23
nifedipine 60 mg tablet,extended release 24 hr 60 mg PO BID Blood Pressure 07/11/23
tacrolimus 1 mg capsule, immediate-release 2 mg PO BID Transplant 07/11/23
tamsulosin 0.4 mg capsule 0.4 mg PO HS Urinary Issue 07/11/23
atorvastatin 40 mg tablet (Lipitor) 40 mg PO HS cholesterol 03/11/25
benzonatate 100 mg capsule 100 mg PO TIDPRN PRN cough 03/11/25
clopidogrel 75 mg tablet (Plavix) 75 mg PO QPM Blood Clot Prevention/Tx 03/11/25
lisinopril 20 mg tablet 20 mg PO QPM Blood Pressure 03/11/25
tiotropium 2.5 mcg-olodaterol 2.5 mcg/actuation mist for inhalation (Stiolto Respimat) 2 puff inhalation R DAILY Lung/Breathing Issues 03/11/25
albuterol sulfate 2.5 mg/3 mL (0.083 %) solution for nebulization 2.5 mg (3 mL) inhalation R QID #75 mL 03/16/25
albuterol sulfate 90 mcg/actuation aerosol inhaler 2 puff inhalation R Q4HPRN PRN sob/wheezing #8.5 grams 03/16/25
cefdinir 300 mg capsule 300 mg PO BID Autoimmune disorder 9 days #18 caps 03/16/25
guaifenesin 600 mg tablet, extended release 12 hr 1,200 mg (2 x 600 mg) PO Q12 #20 tabs 03/16/25
prednisone 10 mg tablet See Rx Instructions .Route .COMPLEX #12 tabs 03/16/25
Home Medication Changes
Pending Results: No
Total time spent discharging patient (in min): 41
--- NOTE | 2025-03-16 16:41 | W.PN.PUL3 ---
Today's Communication / Plan
-
Agree with Dc plan for today.
Outpx follow up in 2-3 weeks
Will need radiographic follow up
Sign off
Assessment
-
Assessment: 64-year-old male former tobacco smoker with a past medical history of COPD, kidney transplant, chronic immunosuppressive use, hypertension, PAD, and DM type II who presents with cough + SOB. He said he has had a cough for about 11
weeks and it worsened over the last 3 weeks. He follows with pulmonology at [place], Dr. Hart, and he was told that he has a viral illness. He does not normally have a cough. Also denied any fevers prior to arrival. He is not on home oxygen.
Also denies nausea/vomiting/diarrhea/abdominal pain. He is on Stiolto for COPD. In the ER he was afebrile to 99.2 �F, pulse rate 116, respiratory rate 20, BP 108/70 and saturating 92% on room air. Labs showed leukocytosis to 12.7, sodium 131,
creatinine 1.5, proBNP 207, troponin negative at <0.012, and COVID-19 antigen negative. Flu swab is negative, blood cultures were collected and CXR showed a left basilar infiltrate likely due to pneumonia. He was given 1 L NS 0.9% in the ER,
DuoNebs + cefepime/vancomycin, and admitted to telemetry under the hospitalist. Pulmonary service is now consulted for additional management/recommendations.
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
Impression:
#CAP involving left lower lobe likely due to Streptococcus pneumonia (sputum culture positive)
#Acute COPD exacerbation due to above
#Acute respiratory failure with hypoxia due to above
#Left-sided complex parapneumonic effusion
#Chronic cough
#Renal transplant (2017 � [place]) on chronic immunosuppressives
#DM type II complicated by hyperglycemia
#Former tobacco smoker
Plan:
- Patient's had a cough for about 2.5 months, however it has been worsening over the last several weeks. CXR on admission here shows a left basilar infiltrate/opacity and sputum culture is positive for Streptococcus pneumoniae
- Prior CXR from 07/11/2023 showed LLL pleural tenting, although prior CT chest from January 2021 showed normal bases
- CXR on 03/14 showed worsening of the left base, although clinically he is feeling better
- He has centrilobular emphysema/COPD and is on stiolto at home --> continue Striverdi + Spiriva while hospitalized along with nebulized albuterol QID
- If he is too SOB to take the SMI then would change inhalers to nebulized form
- prn nebulized albuterol - not currently bronchospastic
- Maintain SpO2 88-95% with supplemental O2 and wean down as tolerated; he will need home O2 assessment prior to discharge
- Encourage pt to get up OOB as tolerated
- Incentive spirometer encouraged q1hr while awake
- Mucolytics - mucinex to 1200mg q12hr
- prn anti-tussants
- Continue prednisone with taper (azith
he says he takes prednisone at home, 1.5mg daily for his kidney transplant)
- Continue with broad spectrum ABx - currently on ceftriaxone + zithromax s/p cefepime + IV vancomycin
- Legionella + strep pneumonia urine antigens negative, although respiratory culture positive for Streptococcus pneumoniae; follow-up blood cultures (collected 03/11/25 � shows NGTD); MRSA swab negative --> IV vancomycin DC'd on 03/12
- Afebrile. Nontoxic. Tolerating food
- Given he is immunosuppressed, would plan for 10 days total of Abx assuming.
- ID consulted - recs appreciated- Defer antibiotics per
- Chest ultrasound from 03/11/2025 showed a small complex left-sided pleural effusion measuring 5.1 x 2.7 x 4.2 cm. Effusion is too small to be tapped.
Radiographic follow-up will be needed in the next 4 to 6 weeks. Advised to call back with any change in symptoms
-
- Continue immunosuppressive's with mycophenolate + tacrolimus
- Tacrolimus level is 11.1 (therapeutic level is 4�11 when tacrolimus using commendation with CellCept); defer additional tacrolimus monitoring to his outpatient transplant commissioner of relocation services
-
- DVT ppx: LMWH
He wishes to follow-up with us at [facility].
He may continue to occasionally follow-up with his pulmonary doctor, Dr. Hart, at [place].
-
Okay to discharge from my perspective.
Sign off
Data:
CXR 03/11/2025: There is a left basilar infiltrate favored to represent pneumonia. Additionally there is a likely small left pleural effusion, likely parapneumonic effusion. Recommend follow-up to ensure resolution.
Subjective Data
-
Date of Service:
Date of Service: March 16, 2025
Chief Complaint: Pulmonary Follow Up
Subjective:
Continues to have coughing but much improved.
Denies hemoptysis
Denies chills or fever
Review of Systems
General: Fever (n)
Cardiopulmonary: Dyspnea (improved)
GI: Abdominal Pain (n) and Nausea (n)
Objective Data
Data Reviewed
Vital Signs / I&O / Oxygen:
Vital Signs
Temp Pulse Resp BP Pulse Ox
98.6 F 109 18 114/84 94
03/16/25 15:28 03/16/25 15:28 03/16/25 15:28 03/16/25 15:28 03/16/25 15:28
Intake and Output
03/15/25 03/16/25 03/17/25
06:59 06:59 06:59
Intake Total 3060 / 3060 1650 / 1650
Output Total 375 / 375 1050 / 1050
Balance 2685 / 2685 600 / 600
SaO2 94
Nasal Cannula flow liters per 1.5
minute
Physical Exam
General: Respiratory Distress (negative), Comfortable, Chills (negative) and Sweats (negative)
HEENT: Normocephalic and Anicteric
Cardiovascular: S1-S2 and Peripheral Edema (negative)
Respiratory: Clear, Wheeze (negative), Crackles (negative), Rhonchi (negative), Non-Labored Respirations and Other (Diminished breath sounds bilaterally)
GI: Soft, Non Distended, Non Tender and Normal Bowel Sounds
Neurology: AO x 3 and Tremors (negative)
Skin: Warm, Dry, Cyanosis (negative) and Jaundice (negative)
Labs/Micro/Reports
Lab Data
03/15/25 06:41
03/15/25 06:41
Microbiology
03/11/25 14:17 Blood/Venous Blood Culture - Final
No Growth - Final Report
03/11/25 14:17 Blood/Venous Blood Culture - Final
No Growth - Final Report
03/11/25 14:48 Sputum Respiratory Culture - Final
Streptococcus pneumoniae
03/11/25 14:48 Sputum Gram Stain - Final
[2025-03-16] MEDS: ROCEPHIN 2000 MG IV (17:12)
[2025-03-16] MEDS: STERILE WATER FOR INJECTION 20 ML IV (17:13)
== END 2025-03-16 17:45 | disposition home or self-care (01) | DRG 871 ==
LOC: 3 WEST ACU 14:23
PROVIDERS: Internal Medicine; Physician Assistant Medical; ADMITTING PHYSICIAN Student in an Organized Health Care Education/Training Program; ATTENDING PHYSICIAN Internal Medicine; CONSULT PHYSICIAN Internal Medicine Infectious Disease; EMERGENCY PHYSICIAN Emergency Medicine; FAMILY PHYSICIAN Nurse Practitioner Family; OTHER PHYSICIAN Internal Medicine Critical Care Medicine
DX: A40.9 Streptococcal sepsis, unspecified (principal); J13 Pneumonia due to Streptococcus pneumoniae; J96.01 Acute respiratory failure with hypoxia; J44.0 Chronic obstructive pulmonary disease with (acute) lower respiratory infection; J44.1 Chronic obstructive pulmonary disease with (acute) exacerbation; D84.821 Immunodeficiency due to drugs; N17.9 Acute kidney failure, unspecified; J91.8 Pleural effusion in other conditions classified elsewhere; Z87.891 Personal history of nicotine dependence; E11.65 Type 2 diabetes mellitus with hyperglycemia; E11.51 Type 2 diabetes mellitus with diabetic peripheral angiopathy without gangrene; J43.2 Centrilobular emphysema; Z79.621 Long term (current) use of calcineurin inhibitor; I10 Essential (primary) hypertension; Z79.82 Long term (current) use of aspirin; Z79.4 Long term (current) use of insulin; E78.5 Hyperlipidemia, unspecified; E87.5 Hyperkalemia; Z11.52 Encounter for screening for COVID-19
CPT/HCPCS: 71046; 76604; 80048; 80053; 80197; 80202; 82570; 82962; 83036; 83605; 83615; 83735; 83880; 84155; 84300; 84484; 85025; 87040; 87070; 87071; 87186; 87205; 87449; 87502; 87641; 87811; 87899; 93005; 94640; 96365; 96375; 99285

== ENCOUNTER → 2025-03-20 14:49 | Outpatient (REF) | payer BC, SELFPAY | LOC: HWRAD 14:49 | PROVIDERS: ATTENDING PHYSICIAN Nurse Practitioner Family | DX: J18.9 Pneumonia, unspecified organism (principal) | CPT/HCPCS: 71046 ==

== ENCOUNTER → 2025-04-07 08:16 | Outpatient (REF) | payer BC, SELFPAY | LOC: HWRAD 08:16 | PROVIDERS: ATTENDING PHYSICIAN Nurse Practitioner Family | DX: J18.9 Pneumonia, unspecified organism (principal) | CPT/HCPCS: 71250 ==